=== PATIENT | male | born 1945 | race Two or more races ===

== ENCOUNTER 2023-03-01 13:36 | Emergency (ER) | payer OTHER ==
[~2023-03-01] VITALS: Ht 172.7 cm; Wt 78.9 kg
[2023-03-01 16:54] LABS: Urine Bacteria MOD /hpf (None Seen); Urine Blood 3+ /uL (Negative); Urine Clarity HAZY (Clear); Urine Color Yellow (Yellow); Urine Hyaline Cast FEW /lpf (0 - 2); Urine Mucus FEW (None Seen); Urine Protein, UAD 1+ (Negative); Urine Specific Gravity 1.019 (1.001-1.035); Urine Urobilinogen Normal (Negative); Urine WBC 80 /hpf (0 - 3); Urine WBC Clumps PRESENT /hpf (None Seen)
[2023-03-01] MEDS ORDERED: LEVO750T8 PO (17:08)
[2023-03-01 17:17] VITALS: BP 142/87; PULSE 77; RESP 16; TEMP 97.4; O2SAT 97
== END 2023-03-01 17:19 | disposition home or self-care (01) ==
LOC: ER 13:36
DX: N40.1 Benign prostatic hyperplasia with lower urinary tract symptoms (principal); N13.8 Other obstructive and reflux uropathy; N39.0 Urinary tract infection, site not specified
CPT/HCPCS: 51702; 81001

== ENCOUNTER 2023-03-04 23:49 | Emergency (ER) | payer OTHER ==
[~2023-03-04] VITALS: Ht 172.7 cm; Wt 78.5 kg
[~2023-03-04 23:49] MED LIST: LEVO750T8 PO
[2023-03-05 06:37] VITALS: BP 138/72; PULSE 79; RESP 18; TEMP 98; O2SAT 97
== END 2023-03-05 07:07 | disposition home or self-care (01) ==
LOC: ER 23:49
DX: T83.028A Displacement of other urinary catheter, initial encounter (principal); R33.9 Retention of urine, unspecified; I50.9 Heart failure, unspecified; Z87.438 Personal history of other diseases of male genital organs; Z87.440 Personal history of urinary (tract) infections
CPT/HCPCS: 51702

== ENCOUNTER 2023-03-06 07:16 | Emergency (ER) | payer OTHER ==
[~2023-03-06] VITALS: Ht 172.7 cm; Wt 76.9 kg
[2023-03-06 09:17] VITALS: BP 125/72; PULSE 86; RESP 18; TEMP 99.2; O2SAT 95
== END 2023-03-06 13:09 | disposition home or self-care (01) ==
LOC: ER 07:16
DX: N40.1 Benign prostatic hyperplasia with lower urinary tract symptoms (principal); T83.018D Breakdown (mechanical) of other urinary catheter, subsequent encounter; N13.8 Other obstructive and reflux uropathy; R33.9 Retention of urine, unspecified
CPT/HCPCS: 51702

== ENCOUNTER 2023-03-07 07:46 | Emergency (ER) | payer OTHER ==
[~2023-03-07] VITALS: Ht 172.7 cm; Wt 77.7 kg
[2023-03-07 08:51] VITALS: BP 136/72; PULSE 77; RESP 18; TEMP 97.8; O2SAT 94
[2023-03-08] MEDS ORDERED: ASPI81CH59 PO (01:20)
[2023-03-08] MEDS ORDERED: TAMS0.4C36 PO (01:20)
[2023-03-08] MEDS ORDERED: MELO-335 PO (01:20)
== END 2023-03-07 10:13 | disposition home or self-care (01) ==
LOC: ER 07:46
DX: T83.038A Leakage of other urinary catheter, initial encounter (principal); Z46.6 Encounter for fitting and adjustment of urinary device
CPT/HCPCS: 51702

== ENCOUNTER 2023-03-07 15:02 | Inpatient (IN) | payer OTHER ==
[~2023-03-07] VITALS: Ht 172.7 cm; Wt 74.6 kg
[2023-03-07] MEDS ORDERED: HYDROcodone-ACET 10/325MG TAB PO ONE (15:45)
[2023-03-07 17:09] LABS: Basophils # (auto) 0.1 10 ^3/uL (0-0.2); Basophils % (auto) 0.7 % (0.0-2.0); Eosinophils # (auto) 1.1 10 ^3/uL (0-0.8); Eosinophils % (auto) 10.9 % (0.0-7.0); Hemoglobin 14.3 g/dL (13.5-17.5); Lymphocytes # (auto) 1.8 10 ^3/uL (0.4-5.4); Lymphocytes % (auto) 18.4 % (10.0-50.0); Mean Corpuscular Hemoglobin 31.2 pg (28.0-32.0); Mean Corpuscular Hgb Conc. 34.8 g/dL (32.0-36.0); Mean Corpuscular Volume 89.7 fL (80.0-100.0); Monocytes # (auto) 0.8 10 ^3/uL (0-1.3); Monocytes % (auto) 8.6 % (0.0-12.0); Neutrophils % (auto) 61.4 % (37.0-80.0); Nucleated Red Blood Cells % 0.1 %; Red Blood Cells 4.57 10^6/uL (4.5-5.90); Red Cell Distribution Width 13.8 % (11.8-14.3); White Blood Cell 9.7 10^3/uL (4.4-10.8)
[2023-03-07 17:21] LABS: Alanine Aminotransferase 20 U/L (7-40); Albumin 4.5 g/dL (3.2-4.8); Alkaline Phosphatase 87 U/L (46-116); Anion Gap 10 (5-15); Aspartate Aminotransferase 21 U/L (13-40); BUN/Creatinine Ratio 16.5 (10.0-20.0); Bilirubin, Total 0.6 mg/dL (0.2-1.0); Blood Urea Nitrogen 17 mg/dL (9-23); Calcium 9.5 mg/dL (8.7-10.4); Carbon Dioxide 23 mmol/L (20-30); Chloride 105 mmol/L (98-107); Glucose 98 mg/dL (74-106); Sodium 138 mmol/L (136-145); Total Protein 7.9 g/dL (5.7-8.2)
[2023-03-07 17:57] VITALS: PULSE 90; RESP 20; O2SAT 96
[2023-03-07 18:17] LABS: Urine Bacteria NONE SEEN /hpf (None Seen); Urine Blood 3+ /uL (Negative); Urine Clarity HAZY (Clear); Urine Color Yellow (Yellow); Urine Mucus FEW (None Seen); Urine Protein, UAD 1+ (Negative); Urine Specific Gravity 1.007 (1.001-1.035); Urine Urobilinogen Normal (Negative); Urine WBC 18 /hpf (0 - 3); Urine pH 5.5 (5.0-8.0)
[2023-03-07 19:05] VITALS: PULSE 17; RESP 17; O2SAT 95
[2023-03-07] MEDS ORDERED: ACETAMINOPHEN 325 MG TAB PO PRN (19:15)
[2023-03-07] MEDS ORDERED: HYDROcodone-ACET 5/325MG TAB PO PRN (19:15)
[2023-03-07] MEDS ORDERED: SODIUM CHLORIDE 0.9% 1,000 ML IV SCH (19:15)
[2023-03-07] MEDS ORDERED: cefTRIAXone 1GM/50ML D5W 50 ML IV ONE (19:15)
[2023-03-08] VITALS (7 sets, daily range): BP systolic 87–150; BP diastolic 50–89; PULSE 73–92; RESP 16–19; TEMP 91–98.2; O2SAT 94–97
[2023-03-08] MEDS ORDERED: ASPI81CH59 PO (01:20)
[2023-03-08] MEDS ORDERED: TAMS0.4C36 PO (01:20)
[2023-03-08] MEDS ORDERED: MELO-335 PO (01:20)
[2023-03-08 05:13] LABS: Basophils # (auto) 0.1 10 ^3/uL (0-0.2); Basophils % (auto) 0.8 % (0.0-2.0); Eosinophils # (auto) 1.4 10 ^3/uL (0-0.8); Eosinophils % (auto) 14.3 % (0.0-7.0); Hematocrit 38.2 % (41.0-53.0); Lymphocytes # (auto) 1.9 10 ^3/uL (0.4-5.4); Lymphocytes % (auto) 18.5 % (10.0-50.0); Mean Corpuscular Hemoglobin 30.2 pg (28.0-32.0); Mean Corpuscular Hgb Conc. 33.9 g/dL (32.0-36.0); Mean Corpuscular Volume 89.2 fL (80.0-100.0); Monocytes # (auto) 0.9 10 ^3/uL (0-1.3); Monocytes % (auto) 9.3 % (0.0-12.0); Neutrophils # (auto) 5.7 10 ^3/uL (1.6-8.6); Neutrophils % (auto) 57.1 % (37.0-80.0); Nucleated Red Blood Cells % 0.1 %; Red Blood Cells 4.28 10^6/uL (4.5-5.90); Red Cell Distribution Width 14.1 % (11.8-14.3)
[2023-03-08 05:32] LABS: Alanine Aminotransferase 19 U/L (7-40); Albumin 3.8 g/dL (3.2-4.8); Alkaline Phosphatase 78 U/L (46-116); Anion Gap 9 (5-15); Aspartate Aminotransferase 19 U/L (13-40); Bilirubin, Total 0.5 mg/dL (0.2-1.0); Blood Urea Nitrogen 23 mg/dL (9-23); Carbon Dioxide 23 mmol/L (20-30); Chloride 107 mmol/L (98-107); Glucose 96 mg/dL (74-106); Potassium 3.8 mmol/L (3.5-5.1); Sodium 139 mmol/L (136-145); Total Protein 6.6 g/dL (5.7-8.2)
[2023-03-08] MEDS: cefTRIAXone 1GM/50ML D5W 50 ML IV SCH (09:43)
[2023-03-08] MEDS: SODIUM CHLORIDE 0.9% 1,000 ML IV SCH (14:25)
[2023-03-08] MEDS: TAMSULOSIN HYDROCHLORIDE 0.4 MG CAP PO SCH (17:52)
[2023-03-09] VITALS (8 sets, daily range): BP systolic 102–149; BP diastolic 67–94; PULSE 87–138; RESP 16–19; TEMP 36.9; O2SAT 93–95
[2023-03-09] MEDS: cefTRIAXone 1GM/50ML D5W 50 ML IV SCH (08:40)
[2023-03-09] MEDS: FINASTERIDE 5 MG TAB PO SCH (08:40)
[2023-03-09] MEDS: SODIUM CHLORIDE 0.9% 1,000 ML IV SCH ×3 (08:42→20:49)
[2023-03-09 09:20] LABS: PSA Free 3.3 ng/mL; Prostate Specific Antigen 26.6 ng/mL (0.0-4.0)
[2023-03-09] MEDS ORDERED: CEPH500C PO (16:28)
[2023-03-09] MEDS: TAMSULOSIN HYDROCHLORIDE 0.4 MG CAP PO SCH (18:37)
[2023-03-09 19:21] LABS: Basophils # (auto) 0 10 ^3/uL (0-0.2); Basophils % (auto) 0.3 % (0.0-2.0); Eosinophils # (auto) 0.4 10 ^3/uL (0-0.8); Eosinophils % (auto) 1.8 % (0.0-7.0); Hematocrit 40.1 % (41.0-53.0); Hemoglobin 13.5 g/dL (13.5-17.5); Lymphocytes % (auto) 5.2 % (10.0-50.0); Mean Corpuscular Hemoglobin 30.5 pg (28.0-32.0); Mean Corpuscular Hgb Conc. 33.8 g/dL (32.0-36.0); Mean Corpuscular Volume 90.3 fL (80.0-100.0); Monocytes # (auto) 1.5 10 ^3/uL (0-1.3); Neutrophils # (auto) 16.2 10 ^3/uL (1.6-8.6); Neutrophils % (auto) 84.7 % (37.0-80.0); Red Blood Cells 4.44 10^6/uL (4.5-5.90); Red Cell Distribution Width 14.2 % (11.8-14.3); White Blood Cell 19.1 10^3/uL (4.4-10.8)
[2023-03-09 19:40] LABS: Alanine Aminotransferase 18 U/L (7-40); Albumin 4.1 g/dL (3.2-4.8); Alkaline Phosphatase 76 U/L (46-116); Anion Gap 8 (5-15); Aspartate Aminotransferase 20 U/L (13-40); BUN/Creatinine Ratio 18.7 (10.0-20.0); Bilirubin, Total 0.7 mg/dL (0.2-1.0); Blood Urea Nitrogen 23 mg/dL (9-23); Calcium 9.2 mg/dL (8.7-10.4); Carbon Dioxide 25 mmol/L (20-30); Chloride 105 mmol/L (98-107); Glucose 127 mg/dL (74-106); Potassium 4.1 mmol/L (3.5-5.1); Sodium 138 mmol/L (136-145); Total Protein 7.2 g/dL (5.7-8.2)
[2023-03-09] MEDS: METOPROLOL TARTRATE 1MG/1ML-5ML VIAL IV SCH ×3 (21:28→22:16)
[2023-03-10] VITALS (7 sets, daily range): BP systolic 120–152; BP diastolic 76–80; PULSE 77–102; RESP 17–19; TEMP 97.9–99.1; O2SAT 93–95
[2023-03-10] MEDS: SODIUM CHLORIDE 0.9% 1,000 ML IV SCH ×2 (06:00→16:06)
[2023-03-10 09:10] LABS: Basophils # (auto) 0.1 10 ^3/uL (0-0.2); Basophils % (auto) 0.4 % (0.0-2.0); Eosinophils # (auto) 0.8 10 ^3/uL (0-0.8); Eosinophils % (auto) 6.3 % (0.0-7.0); Hematocrit 38.3 % (41.0-53.0); Lymphocytes # (auto) 1.4 10 ^3/uL (0.4-5.4); Lymphocytes % (auto) 10.7 % (10.0-50.0); Mean Corpuscular Hemoglobin 30.8 pg (28.0-32.0); Mean Corpuscular Hgb Conc. 34.1 g/dL (32.0-36.0); Mean Corpuscular Volume 90.4 fL (80.0-100.0); Monocytes # (auto) 1.4 10 ^3/uL (0-1.3); Monocytes % (auto) 11.1 % (0.0-12.0); Neutrophils # (auto) 9.3 10 ^3/uL (1.6-8.6); Neutrophils % (auto) 71.5 % (37.0-80.0); Red Blood Cells 4.24 10^6/uL (4.5-5.90); Red Cell Distribution Width 13.7 % (11.8-14.3)
[2023-03-10] MEDS: FINASTERIDE 5 MG TAB PO SCH (09:22)
[2023-03-10] MEDS: cefTRIAXone 1GM/50ML D5W 50 ML IV SCH (09:29)
[2023-03-10 09:33] LABS: Alanine Aminotransferase 16 U/L (7-40); Albumin 3.9 g/dL (3.2-4.8); Alkaline Phosphatase 65 U/L (46-116); Anion Gap 9 (5-15); Aspartate Aminotransferase 19 U/L (13-40); BUN/Creatinine Ratio 16.8 (10.0-20.0); Bilirubin, Total 1.2 mg/dL (0.2-1.0); Blood Urea Nitrogen 18 mg/dL (9-23); Calcium 9.6 mg/dL (8.5-10.1); Carbon Dioxide 24 mmol/L (20-30); Chloride 107 mmol/L (98-107); Glucose 110 mg/dL (74-106); Potassium 3.5 mmol/L (3.5-5.1); Sodium 140 mmol/L (136-145); Total Protein 7.1 g/dL (5.7-8.2)
[2023-03-10 10:58] LABS: Triglycerides 59 mg/dL (< 150)
[2023-03-10 10:59] LABS: LDL Cholesterol 72 mg/dL (< 100)
[2023-03-10 11:00] LABS: Cholesterol 132 mg/dL (< 200); HDL Cholesterol 45 mg/dL (40-59)
[2023-03-10] MEDS: SACUBITRIL-VALSARTAN 24mg/26mg TAB PO SCH ×2 (12:40→21:50)
[2023-03-10] MEDS: EMPAGLIFLOZIN 10 MG TAB PO SCH (12:40)
[2023-03-10] MEDS: METOPROLOL SUCCINATE XL 50 MG TAB PO SCH (12:40)
[2023-03-10] MEDS: TAMSULOSIN HYDROCHLORIDE 0.4 MG CAP PO SCH (17:48)
[2023-03-10] MEDS: ATORVASTATIN 20 MG TAB PO SCH (21:50)
[2023-03-11] VITALS (7 sets, daily range): BP systolic 105–135; BP diastolic 66–75; PULSE 68–96; RESP 16–19; TEMP 97.7–98.9; O2SAT 93–96
[2023-03-11] MEDS: SODIUM CHLORIDE 0.9% 1,000 ML IV SCH ×2 (01:20→09:30)
[2023-03-11] MEDS ORDERED: ALLOPURINOL 300 MG TAB PO ONE (02:30)
[2023-03-11] MEDS ORDERED: INDOMETHACIN 25 MG CAP PO ONE ×2 (02:30→21:15)
[2023-03-11 06:55] LABS: Basophils # (auto) 0 10 ^3/uL (0-0.2); Basophils % (auto) 0.2 % (0.0-2.0); Eosinophils # (auto) 0.4 10 ^3/uL (0-0.8); Eosinophils % (auto) 2.6 % (0.0-7.0); Hemoglobin 13.8 g/dL (13.5-17.5); Lymphocytes # (auto) 1.4 10 ^3/uL (0.4-5.4); Lymphocytes % (auto) 8.7 % (10.0-50.0); Mean Corpuscular Hemoglobin 30.8 pg (28.0-32.0); Mean Corpuscular Hgb Conc. 34.6 g/dL (32.0-36.0); Mean Corpuscular Volume 88.8 fL (80.0-100.0); Monocytes # (auto) 1.7 10 ^3/uL (0-1.3); Monocytes % (auto) 10.6 % (0.0-12.0); Neutrophils # (auto) 12.4 10 ^3/uL (1.6-8.6); Neutrophils % (auto) 77.9 % (37.0-80.0); Red Cell Distribution Width 13.6 % (11.8-14.3); White Blood Cell 15.9 10^3/uL (4.4-10.8)
[2023-03-11 07:13] LABS: Alanine Aminotransferase 17 U/L (7-40); Alkaline Phosphatase 67 U/L (46-116); Anion Gap 11 (5-15); Aspartate Aminotransferase 21 U/L (13-40); Blood Urea Nitrogen 15 mg/dL (9-23); Calcium 9.1 mg/dL (8.5-10.1); Carbon Dioxide 22 mmol/L (20-30); Chloride 106 mmol/L (98-107); Glucose 107 mg/dL (74-106); Potassium 3.5 mmol/L (3.5-5.1); Sodium 139 mmol/L (136-145)
[2023-03-11 07:14] LABS: Total Protein 7.4 g/dL (5.7-8.2)
[2023-03-11] MEDS: EMPAGLIFLOZIN 10 MG TAB PO SCH (09:28)
[2023-03-11] MEDS: FINASTERIDE 5 MG TAB PO SCH (09:28)
[2023-03-11] MEDS: SACUBITRIL-VALSARTAN 24mg/26mg TAB PO SCH ×2 (09:28→21:14)
[2023-03-11] MEDS: cefTRIAXone 1GM/50ML D5W 50 ML IV SCH (09:28)
[2023-03-11] MEDS: METOPROLOL SUCCINATE XL 50 MG TAB PO SCH (09:29)
[2023-03-11] MEDS ORDERED: traMADol HCL 50 MG TAB PO PRN (18:45)
[2023-03-11] MEDS: TAMSULOSIN HYDROCHLORIDE 0.4 MG CAP PO SCH (19:21)
[2023-03-11] MEDS ORDERED: PATIENTS OWN MEDICATION PO SCH (20:00)
[2023-03-11] MEDS: MELOXICAM 15MG TABLET PO SCH (20:00)
[2023-03-11] MEDS: ATORVASTATIN 20 MG TAB PO SCH (21:14)
[2023-03-12] VITALS (9 sets, daily range): BP systolic 108–127; BP diastolic 67–85; PULSE 76–105; RESP 12–20; TEMP 97.5–98.5; O2SAT 93–96
[2023-03-12 06:42] LABS: INR 1.1 (0.9-1.15); Prothrombin Time 11.5 sec (9.3-11.8)
[2023-03-12] MEDS: cefTRIAXone 1GM/50ML D5W 50 ML IV SCH (09:00)
[2023-03-12] MEDS: ALLOPURINOL 100 MG TAB PO SCH (10:00)
[2023-03-12] MEDS: FINASTERIDE 5 MG TAB PO SCH (10:00)
[2023-03-12] MEDS: SACUBITRIL-VALSARTAN 24mg/26mg TAB PO SCH ×2 (10:00→19:43)
[2023-03-12] MEDS: EMPAGLIFLOZIN 10 MG TAB PO SCH (10:00)
[2023-03-12] MEDS: METOPROLOL SUCCINATE XL 50 MG TAB PO SCH (10:00)
[2023-03-12] MEDS: MELOXICAM 15MG TABLET PO SCH (10:00)
[2023-03-12] MEDS ORDERED: LIDOCAINE VISCOUS 2% 15ML UD PO ONE (10:15)
[2023-03-12] MEDS ORDERED: fentaNYL CITRATE 100 MCG/2 ML VL IV ONE (10:15)
[2023-03-12] MEDS ORDERED: MIDAZOLAM HCL 2MG/2ML 2ml VIAL (1mg/ml) IV ONE (10:15)
[2023-03-12] MEDS ORDERED: IOHEXOL 350 MG/ML 100ML IJ ONE (15:36)
[2023-03-12] MEDS ORDERED: FAMOTIDINE (10MG/ML) 2ML VL IV ONE (16:00)
[2023-03-12] MEDS ORDERED: ACETAMINOPHEN 325 MG TAB PO ONE (16:00)
[2023-03-12] MEDS ORDERED: methylPREDNISolone SOD SUCC 125 MG/2 ML VL IV ONE (16:00)
[2023-03-12] MEDS ORDERED: diphenhdrAMINE HCL 50 MG/1 ML VL IV ONE (16:00)
[2023-03-12] MEDS: ATORVASTATIN 20 MG TAB PO SCH (19:43)
[2023-03-12] MEDS: TAMSULOSIN HYDROCHLORIDE 0.4 MG CAP PO SCH (19:43)
[2023-03-13] VITALS (7 sets, daily range): BP systolic 79–128; BP diastolic 44–80; PULSE 77–102; RESP 16–18; TEMP 97.4–98.8; O2SAT 88–100
[2023-03-13 07:14] LABS: Alanine Aminotransferase 24 U/L (7-40); Alkaline Phosphatase 68 U/L (46-116); Anion Gap 10 (5-15); Aspartate Aminotransferase 29 U/L (13-40); BUN/Creatinine Ratio 17.3 (10.0-20.0); Blood Urea Nitrogen 17 mg/dL (9-23); Calcium 9.3 mg/dL (8.5-10.1); Carbon Dioxide 23 mmol/L (20-30); Chloride 105 mmol/L (98-107); Glucose 92 mg/dL (74-106); Potassium 3.6 mmol/L (3.5-5.1); Sodium 138 mmol/L (136-145)
[2023-03-13 07:15] LABS: Bilirubin, Total 0.9 mg/dL (0.2-1.0); Total Protein 7.3 g/dL (5.7-8.2)
[2023-03-13 07:56] LABS: Basophils # (auto) 0.1 10 ^3/uL (0-0.2); Basophils % (auto) 0.6 % (0.0-2.0); Eosinophils # (auto) 1.7 10 ^3/uL (0-0.8); Eosinophils % (auto) 14.8 % (0.0-7.0); Hematocrit 39.9 % (41.0-53.0); Hemoglobin 13.7 g/dL (13.5-17.5); Lymphocytes # (auto) 1.6 10 ^3/uL (0.4-5.4); Mean Corpuscular Hemoglobin 30.7 pg (28.0-32.0); Mean Corpuscular Hgb Conc. 34.3 g/dL (32.0-36.0); Mean Corpuscular Volume 89.4 fL (80.0-100.0); Monocytes # (auto) 1.1 10 ^3/uL (0-1.3); Monocytes % (auto) 9.7 % (0.0-12.0); Neutrophils % (auto) 60.9 % (37.0-80.0); Nucleated Red Blood Cells % 0.1 %; Red Blood Cells 4.46 10^6/uL (4.5-5.90); Red Cell Distribution Width 13.6 % (11.8-14.3); White Blood Cell 11.5 10^3/uL (4.4-10.8)
[2023-03-13] MEDS: cefTRIAXone 1GM/50ML D5W 50 ML IV SCH (09:04)
[2023-03-13] MEDS: SACUBITRIL-VALSARTAN 24mg/26mg TAB PO SCH (09:10)
[2023-03-13] MEDS: EMPAGLIFLOZIN 10 MG TAB PO SCH (09:11)
[2023-03-13] MEDS: FINASTERIDE 5 MG TAB PO SCH (09:12)
[2023-03-13] MEDS: METOPROLOL SUCCINATE XL 50 MG TAB PO SCH (09:13)
[2023-03-13] MEDS: ALLOPURINOL 100 MG TAB PO SCH (09:13)
[2023-03-13] MEDS: MELOXICAM 15MG TABLET PO SCH (09:13)
[2023-03-13] MEDS ORDERED: METO25TA5 PO (13:38)
[2023-03-13] MEDS ORDERED: FINA5TAB4 PO (13:38)
== END 2023-03-13 17:26 | disposition home or self-care (01) | DRG 699 ==
LOC: EDUNIT# 15:02 → ER 15:02 → EDBD 15:02 → OVERFLOW 19:10 → WEST WING 23:47 → TELE-WESTW 03-08 19:10
PROVIDERS: ADMIT Nurse Practitioner Family; ATTEND Nurse Practitioner Acute Care
PROC: B24BZZ4 Ultrasonography of Heart with Aorta, Transesophageal (ICD-10-PCS; principal; 2023-03-12)
DX: T83.038A Leakage of other urinary catheter, initial encounter (principal); I42.0 Dilated cardiomyopathy; I50.40 Unspecified combined systolic (congestive) and diastolic (congestive) heart failure; N13.8 Other obstructive and reflux uropathy; N13.6 Pyonephrosis; N40.1 Benign prostatic hyperplasia with lower urinary tract symptoms; Y84.6 Urinary catheterization as the cause of abnormal reaction of the patient, or of later complication, without mention of misadventure at the time of the procedure; I44.0 Atrioventricular block, first degree; I44.7 Left bundle-branch block, unspecified; R00.0 Tachycardia, unspecified; I08.0 Rheumatic disorders of both mitral and aortic valves; N21.0 Calculus in bladder; E66.9 Obesity, unspecified; M10.9 Gout, unspecified; Z79.82 Long term (current) use of aspirin; Z79.899 Other long term (current) drug therapy; Z87.440 Personal history of urinary (tract) infections; Y92.89 Other specified places as the place of occurrence of the external cause; Z68.26 Body mass index [BMI] 26.0-26.9, adult
CPT/HCPCS: 36415; 70450; 71045; 71275; 74176; 80053; 80061; 81001; 82962; 83036; 83880; 84154; 84443; 84484; 84550; 85025; 85379; 85610; 85730; 86850; 86900; 86901; 87040; 87086; 93005; 93306; 93312; 93886; 99152; 99291; G0378; J2250

== ENCOUNTER 2023-03-16 08:51 | Emergency (ER) | payer OTHER ==
[~2023-03-16] VITALS: Ht 172.7 cm; Wt 77.1 kg
[~2023-03-16 08:51] MED LIST changes: +CEPH500C PO; +FINA5TAB4 PO; -LEVO750T8 PO; +MELO-335 PO; +METO25TA5 PO; +TAMS0.4C36 PO
[2023-03-16 09:33] VITALS: BP 183/91; PULSE 87; RESP 18; TEMP 97.5; O2SAT 98
== END 2023-03-16 10:24 | disposition home or self-care (01) ==
LOC: ER 08:51
DX: T83.098A Other mechanical complication of other urinary catheter, initial encounter (principal); R33.9 Retention of urine, unspecified; I50.9 Heart failure, unspecified; M10.9 Gout, unspecified; Z79.2 Long term (current) use of antibiotics; Z79.82 Long term (current) use of aspirin; Z79.899 Other long term (current) drug therapy
CPT/HCPCS: 51702

== ENCOUNTER 2024-06-11 18:12 | Inpatient (IN) | payer OTHER ==
[~2024-06-11] VITALS: Ht 172.7 cm; Wt 85.5 kg
[~2024-06-11 18:12] MED LIST changes: -MELO-335 PO; +MELO15TA29 PO; -TAMS0.4C36 PO; +TAMS0.4C39 PO
--- NOTE | 2024-06-11 18:20 | ED.PDOC ---
GI ASSESSMENT HPI Comments 78 y/o M, with PMHx of CHF, GOUT, and arthritis presents to the ED for CC of abdominal pain and blood pressure concerns. Patient states, that he has been experiencing diffuse abdominal pain with associated symptoms of nausea, vomiting, and diarrhea x1day. additionally, patient states his blood pressure was elevated at today's reading. Patient relays, additional symptoms of change in gait and motor functions as a result or flare-up. Patient denies fever, chills, body-aches, or change in diet. No other symptoms or modifying factors present at this time . Patient was tachycardic, hypertensive and febrile at arrival. Time Seen by MD: 18:19 Primary Care Provider: ISAIAS Reviewed Notes: Nurses Notes, Medications, Allergies Allergies: Coded Allergies: NO KNOWN ALLERGIES (Unverified , 03/01/23) Home Meds Active Scripts Metoprolol Tartrate (Metoprolol Tartrate) 25 Mg Tab, 1 TAB PO BID for 30 Days, #60 TAB 5 Refills Prov:KNEDELL SEGURA HOUSE STEWARD/STEWARDESS 03/13/23 Finasteride (Finasteride) 5 Mg Tab, 1 TAB PO DAILY for 30 Days, #30 TAB 11 Refills Prov:KENDELL SEGURA HOUSE STEWARD/STEWARDESS 03/13/23 Cephalexin Monohydrate (Cephalexin) 500 Mg Cap, 1 CAP PO TID for 7 Days, #21 CAP Prov:IDA KANG MD 03/09/23 Reported Medications Meloxicam (Meloxicam) 15 Mg Tab, 15 MG PO, TAB 03/08/23 Tamsulosin Hcl (Tamsulosin Hcl) 0.4 Mg Cap, 1 CAP PO DAILY 03/08/23 Information Source: Patient Mode of Arrival: Ambulatory Timing: Days Duration: Since onset Prehospital treatment: None Quality: None Vomitus: Watery Stool: Watery Severity: Moderate Recent: None Recent Hx of: None Pain Location: Diffuse Modifying Factors: Nothing Associated sign and symptoms: Nausea, Vomiting, Diarrhea Past Medical History PAST MEDICAL HISTORY: Arthritis, CHF, Gout, HTN, UTI'S Surgical History: Denies all surgeries Family History Family History: Reviewed,noncontributory to illness Social History Smoker: Non-Smoker Alcohol: Denies ETOH Use Drugs: Denies Drug Use Lives In: Home Constitutional: reports: fatigue, weakness, others (Unsteady gait); denies: chills, diaphoresis, fever, malaise, sweats EENTM: denies: blurred vision, double vision, ear bleeding, ear discharge, ear drainage, ear pain, ear ringing, eye pain, eye redness, hearing loss, mouth pain, mouth swelling, nasal discharge, nose bleeding, nose congestion, nose pain, photophobia, tearing, throat pain, throat swelling, voice changes, others Respiratory: denies: cough, hemoptysis, orthopnea, SOB at rest, shortness of breath, SOB with excertion, stridor, wheezing, others Cardiovascular: denies: chest pain, dizzy spells, diaphoresis, Dyspnea on exertion, edema, irregular heart beat, left arm pain, lightheadedness, palpitations, PND, syncope, others Gastrointestinal: reports: abdominal pain, diarrhea, nausea, vomiting; denies: abdomen distended, blood streaked bowels, constipated, dysphagia, difficulty swallowing, hematemesis, melena, poor appetite, poor fluid intake, rectal bleeding, rectal pain, others Genitourinary: denies: burning, dysuria, flank pain, frequency, hematuria, incontinence, penile discharge, penile sore, pain, testicle pain, testicle swelling, urgency, others Neurological: denies: dizziness, fainting, headache, left sided numbness, left sided weakness, numbness, paresthesia, pre-existing deficit, right sided numbness, right sided weakness, seizure, speech problems, tingling, tremors, weakness, others Musculoskeletal: reports: others ( unsteady gait); denies: back pain, gout, joint pain, joint swelling, muscle pain, muscle stiffness, neck pain Integumetry: denies: bruises, change in color, change in hair/nails, dryness, laceration, lesions, lumps, rash, wounds, others Allergic/Immunocompromised: denies: Difficulty Healing, Frequent Infections, Hives, Itching, others Hematologic/Lymphatic: denies: anemia, blood clots, easy bleeding, easy bruising, swollen glands, others Endocrine: denies: excessive hunger, excessive sweating, excessive thirst, excessive urination, flushing, intolerance to cold, intolerance to heat, unexplained weight gain, unexplained weight loss, others Psychiatric: denies: anxiety, bipolar disorder, depression, hopeless, panic disorder, schizophrenia, sleepless, suicidal, others All Other Systems: Reviewed and Negative Physical Exam General Appearance: Moderate Distress ( due to abdominal pain and blood pressure issues), Normal HEENT: Normal ENT Inspection, Pharynx Normal, TMs Normal Neck: Full Range of Motion, Non-Tender, Normal, Normal Inspection Respiratory: Chest Non-Tender, Lungs Clear, No Accessory Muscle Use, No Respiratory Distress, Normal Breath Sounds Cardiovascular: No Edema, No JVD, No Murmur, No Gallop, Normal Peripheral Pulses, Regular Rate/Rhythm Breast Exam: Deferred Gastrointestinal: No Organomegaly, Non Tender, No Pulsatile Mass, Normal Bowel Sounds, Soft Genitalia: Deferred Pelvic: Deferred Rectal: Deferred Extremities: Other ( patient displayed an unsteady gait as he anterior the triage facility for assistance.) Neurologic: Alert, No Motor Deficits, Normal Affect, Normal Mood, No Sensory Deficits Cerebellar Function: Normal Reflexes: Normal Skin: Dry, Normal Color, Warm Lymphatic: No Adenopathy Was a procedure done? Was a procedure done?: No GI differential Dx Differential Diagnosis: Gastritis/PUD, Gastroenteritis, Pancreatitis, Electrolyte Imbalance, Food Poisoning, Bacterial, Viral X-Ray, Labs, Meds, VS Vital Signs Date Time Temp Pulse Resp B/P (MAP) Pulse Ox O2 Delivery O2 Flow Rate FiO2 06/12/24 01:36 72 12 98/35 (56) 96 06/11/24 23:20 77 15 91 Nasal Cannula* 3 32 06/11/24 23:08 99.8 80 21 104/53 (70) 95 99.8 06/11/24 23:07 75 06/11/24 22:58 76 17 74/50 (58) 95 06/11/24 21:13 06/11/24 21:09 99.5 120 16 106/55 (72) 94 99.5 06/11/24 21:08 99.5 06/11/24 20:13 134/88 06/11/24 19:55 127 18 139/88 (105) 94 06/11/24 19:54 139/88 06/11/24 19:16 101.5 127 17 171/93 (119) 94 101.5 06/11/24 19:16 127 17 94 Room Air 06/11/24 19:09 171/93 06/11/24 19:06 101.5 06/11/24 18:54 102.1 130 19 162/102 (122) 95 102.1 Lab Test 06/11/24 22:56 06/11/24 19:28 06/11/24 18:20 Range/Units POC Glucose 183 H 70-106 mg/dl Urine Color Light-yellow Yellow Urine Clarity Clear Clear Urine pH 5.5 5.0-9.0 Urine Specific [place] 1.010 1.001-1.035 Urine Protein 1+ H Negative Urine Ketones Negative Negative Urine Blood 1+ H Negative /uL Urine Nitrite 1+ H Negative Urine Bilirubin Negative Negative Urine Urobilinogen Normal Negative mg/dL Urine Leukocyte Esterase Negative Negative /uL Urine RBC 2 0 - 3 /hpf Urine Microscopic WBC 3 0-3 /HPF Urine Squamous Epithelial Cells Few <5 /hpf Urine Bacteria None seen None Seen /hpf Urine Mucus Few None Seen Urine Glucose Normal Normal mg/dL Urine Opiates Screen Neg NEGATIVE Urine Fentanyl Screen Neg NEGATIVE Urine Barbiturates Screen Neg NEGATIVE Urine Phencyclidine Screen Neg NEGATIVE Urine Amphetamines Screen Neg NEGATIVE Urine Benzodiazepines Screen Neg NEGATIVE Urine Cocaine Screen Neg NEGATIVE Urine Cannabinoids Screen Neg NEGATIVE Influenza Type A Antigen Negative Negative Influenza Type B Antigen Negative Negative SARS-CoV-2 Antigen (Rapid) Negative NEGATIVE White Blood Count 14.0 H 4.4-10.8 10^3/uL Red Blood Count 5.96 H 4.5-5.90 10^6/uL Hemoglobin 18.7 H 13.5-17.5 g/dL Hematocrit 53.9 H 41.0-53.0 % Mean Corpuscular Volume 90.6 80.0-100.0 fL Mean Corpuscular Hemoglobin 31.4 28.0-32.0 pg Mean Corpuscular Hemoglobin Concent 34.7 32.0-36.0 g/dL Red Cell Distribution Width 14.8 H 11.8-14.3 % Platelet Count 207 140-450 10^3/uL Mean Platelet Volume 8.0 6.9-10.8 fL Neutrophils (%) (Auto) 84.9 H 37.0-80.0 % Lymphocytes (%) (Auto) 4.8 L 10.0-50.0 % Monocytes (%) (Auto) 8.8 0.0-12.0 % Eosinophils (%) (Auto) 1.2 0.0-7.0 % Basophils (%) (Auto) 0.3 0.0-2.0 % Neutrophils # (Auto) 11.9 H 1.6-8.6 10 ^3/uL Lymphocytes # (Auto) 0.7 0.4-5.4 10 ^3/uL Monocytes # (Auto) 1.2 0-1.3 10 ^3/uL Eosinophils # (Auto) 0.2 0-0.8 10 ^3/uL Basophils # (Auto) 0 0-0.2 10 ^3/uL Nucleated Red Blood Cells 0.7 % Sodium Level 136 136-145 mmol/L Potassium Level 4.2 3.5-5.1 mmol/L Chloride Level 103 98-107 mmol/L Carbon Dioxide Level 23 20-31 mmol/L Anion Gap 10 5-15 Blood Urea Nitrogen 15 9-23 mg/dL Creatinine 1.36 H 0.700-1.30 mg/dL Glomerular Filtration Rate Calc 54 >90 mL/min BUN/Creatinine Ratio 11.0 10.0-20.0 Serum Glucose 125 H 74-106 mg/dL Lactic Acid Level 1.4 0.4-2.0 mmol/L Calcium Level 9.9 8.7-10.4 mg/dL Total Bilirubin 0.7 0.2-1.0 mg/dL Aspartate Amino Transferase (AST) 31 13-40 U/L Alanine Aminotransferase (ALT) 27 7-40 U/L Alkaline Phosphatase 103 46-116 U/L B-Type Natriuretic Peptide 181.72 0-100 pg/mL Total Protein 8.9 H 5.7-8.2 g/dL Albumin 5.3 H 3.2-4.8 g/dL Lipase 39 12-53 U/L Plasma/Serum Blood Alcohol < 3.0 <10 mg/dL Current Medications Medications (Trade) Dose Ordered Sig/Komal Route Start Time Stop Time Status Last Admin Dicyclomine HCl (Bentyl Injection) 20 mg ONCE ONCE IM 06/11/24 18:30 06/11/24 18:31 DC 06/11/24 19:09 Ondansetron HCl (Zofran Po) 4 mg ONCE ONCE PO 06/11/24 18:30 06/11/24 18:31 DC 06/11/24 19:09 Acetaminophen (Tylenol Tablet Or Capsule) 1,000 mg ONCE ONCE PO 06/11/24 19:00 06/11/24 19:01 DC 06/11/24 19:06 Clonidine HCl (Catapres Tablet) 0.2 mg ONCE ONCE PO 06/11/24 19:15 06/11/24 19:16 DC 06/11/24 19:09 Sodium Chloride 1,000 ml @ 1,000 mls/hr Q1H ONCE IV 06/11/24 20:00 06/11/24 20:59 DC 06/11/24 20:09 Furosemide (Lasix Injection) 40 mg ONCE ONCE IV 06/11/24 20:00 06/11/24 20:03 DC 06/11/24 20:13 Piperacillin Sod/ Tazobactam Sod 100 ml @ 100 mls/hr ONCE ONCE IV 06/11/24 20:00 06/11/24 20:59 DC 06/11/24 20:16 Vancomycin HCl 350 ml @ 200 mls/hr ONCE ONCE IV 06/11/24 20:30 06/11/24 22:14 DC 06/11/24 21:26 Sodium Chloride 1,000 ml @ 1,000 mls/hr Q1H ONCE IV 06/11/24 21:15 06/11/24 22:14 DC 06/11/24 21:18 Sodium Chloride 1,000 ml @ 1,000 mls/hr Q1H ONCE IV 06/11/24 23:15 06/12/24 00:14 DC 06/11/24 23:08 Albumin Human 100 ml @ 100 mls/hr ONCE ONCE IV 06/12/24 01:00 06/12/24 01:59 DC 06/12/24 01:03 X-Ray, Labs, Meds, VS Comment At time of arrival, patient is blood pressure heart rate and respiration rate was elevated inspire a SIRS concern. First laboratories revealed an elevated white blood cell count therefore, sepsis protocol was initiated. All studies performed in the ED were reviewed by me personally. Serum laboratories revealed a hyperglycemic state as well as a leukocyte doses state. Urinalysis confirmed a UTI and imaging confirmed a prostatomegaly, 3.5 cm calculus in the dependent left urinary bladder, nonobstructing left renal stone, mild colonic diverticulosis. Concerning was the patient arrived with elevated blood pressure readings and therefore, patient was provided with a 0.2 clonidine. Subsequent to taking the clonidine patient's blood pressure crashed relative to normal pressure readings. Pressure was in the high 70s over the high 30s. Patient received multiple boluses of fluid as well as albumin while awaiting admission.. Spoke with the provider Katiuska Isidro. Waiting on imaging studies to convey to her as she is willing to accept the patient as an admission Time of 1ST Reevaluation: 18:49 Reevaluation 1ST: Unchanged Patient Education/Counseling: Diagnosis, Treatment Family Education/Counseling: No Family Present Departure 1 Departure Time of Disposition: 02:36 Impression: Primary Impression: Hypotension Additional Impressions: Leukocytosis Hyperglycemia UTI (urinary tract infection) Sepsis Disposition: ADMITTED INPATIENT Condition: Fair Discharged With: Self Critical Care Note Critical Care Time?: No Stability Stability form required: No Heart Score Heart Score: Heart Score Response (Comments) Value History N/A 0 EKG N/A 0 Age N/A 0 Risk Factors N/A 0 Troponin N/A 0 Total 0 I personally scribed for BONNIE GRULLON PAC ([email or web address]) on 06/11/24 at 18:20. Electronically submitted by Bailee Whaley ([email or web address]). I personally scribed for BONNIE GRULLON PAC ([email or web address]) on 06/11/24 at 18:26. Electronically submitted by Bailee Whaley ([email or web address]). BONNIE GRULLON PAC Jun 11, 2024 18:20
[2024-06-11 18:46] LABS: Basophils # (auto) 0 10 ^3/uL (0-0.2); Basophils % (auto) 0.3 % (0.0-2.0); Eosinophils # (auto) 0.2 10 ^3/uL (0-0.8); Lymphocytes # (auto) 0.7 10 ^3/uL (0.4-5.4); Monocytes # (auto) 1.2 10 ^3/uL (0-1.3)
[2024-06-11 18:49] LABS: Eosinophils % (auto) 1.2 % (0.0-7.0); Hematocrit 53.9 % (41.0-53.0); Hemoglobin 18.7 g/dL (13.5-17.5); Lymphocytes % (auto) 4.8 % (10.0-50.0); Mean Corpuscular Hemoglobin 31.4 pg (28.0-32.0); Mean Corpuscular Hgb Conc. 34.7 g/dL (32.0-36.0); Mean Corpuscular Volume 90.6 fL (80.0-100.0); Monocytes % (auto) 8.8 % (0.0-12.0); Neutrophils # (auto) 11.9 10 ^3/uL (1.6-8.6); Neutrophils % (auto) 84.9 % (37.0-80.0); Nucleated Red Blood Cells % 0.7 %; Platelet Count (auto) 207 10^3/uL (140-450); Red Blood Cells 5.96 10^6/uL (4.5-5.90); Red Cell Distribution Width 14.8 % (11.8-14.3)
[2024-06-11] MEDS: ACETAMINOPHEN 325 MG TAB PO ONE (19:03)
[2024-06-11 19:05] LABS: Alanine Aminotransferase 27 U/L (7-40); Alkaline Phosphatase 103 U/L (46-116); Anion Gap 10 (5-15); Aspartate Aminotransferase 31 U/L (13-40); Bilirubin, Total 0.7 mg/dL (0.2-1.0); Blood Urea Nitrogen 15 mg/dL (9-23); Calcium 9.9 mg/dL (8.7-10.4); Carbon Dioxide 23 mmol/L (20-31); Chloride 103 mmol/L (98-107); Potassium 4.2 mmol/L (3.5-5.1); Sodium 136 mmol/L (136-145)
[2024-06-11] MEDS: ACETAMINOPHEN 500 MG TAB or CAP PO ONE (19:06)
[2024-06-11] MEDS: cloNIDine HCL 0.1 MG TAB PO ONE (19:09)
[2024-06-11] MEDS: DICYCLOMINE HCL (10MG/ML) 2 ML AMPULE IM ONE (19:09)
[2024-06-11] MEDS: ONDANSETRON ODT 4 MG TAB PO ONE (19:09)
[2024-06-11 19:13] LABS: Albumin 5.3 g/dL (3.2-4.8); Blood Alcohol < 3.0 mg/dL (<10); Glucose 125 mg/dL (74-106); Total Protein 8.9 g/dL (5.7-8.2)
[2024-06-11 19:30] LABS: Lipase 39 U/L (12-53)
[2024-06-11] MEDS ORDERED: VANCOMYCIN PER PHARMACY 0 MG IV SCH (20:00)
[2024-06-11] MEDS: SODIUM CHLORIDE 0.9% 1,000 ML IV ONE ×4 (20:03→23:08)
[2024-06-11] MEDS: FUROSEMIDE 40 MG/4 ML VIAL IV ONE (20:13)
[2024-06-11] MEDS: PIPERACILLIN-TAZOB 3.375GM 100 ML IV ONE (20:16)
[2024-06-11 21:06] LABS: Urine Bacteria None Seen /hpf (None Seen)
[2024-06-11] MEDS: VANCOMYCIN 1.75GM/350ML 350 ML IV ONE (21:26)
[2024-06-11 21:33] LABS: Amphetamine Screen, Urine Neg (NEGATIVE); Barbiturate Scree,Urine Neg (NEGATIVE); Benzodiazephine Screen, Urine Neg (NEGATIVE); COVID19 ANTIGEN SOFIA FIA NEGATIVE (NEGATIVE); Cannabinoid Screen, Urine Neg (NEGATIVE); Cocaine Screen, Urine Neg (NEGATIVE); Opiate Scree,Urine Neg (NEGATIVE); Phencyclidine Screen, Urine Neg (NEGATIVE); Rapid Influenza A Negative (Negative); Rapid Influenza B Negative (Negative)
[2024-06-11 21:37] LABS: Urine Blood 1+ /uL (Negative); Urine Clarity Clear (Clear); Urine Color Light-Yellow (Yellow); Urine Mucus FEW (None Seen); Urine Protein, UAD 1+ (Negative); Urine Squamous Epithelial Cell FEW /hpf (<5); Urine Urobilinogen Normal (Negative); Urine WBC 3 /HPF (0-3); Urine pH 5.5 (5.0-9.0)
[2024-06-11 23:20] VITALS: PULSE 77; RESP 15; O2SAT 91
[2024-06-12] MEDS: ALBUMIN 25% 100 ML IV ONE (01:03)
--- NOTE | 2024-06-12 02:08 | DVH ---
CLINICAL HISTORY: Shortness of breath/ ABD PAIN TECHNIQUE: CT of the chest, abdomen and pelvis was performed with IV contrast without IV contrast. Th is exam was performed according to our departmental dose optimization program. Up-to-date CT equipmen t and radiation dose reduction techniques are utilized as appropriate. CTDI: 21.64+ 0.14 DLP: 1604.07 COMPARISON: CT CT AB PEL WO CON-NO ORAL OR IV on DOS: 03/07/23 CTA chest from 03/12/2023 FINDINGS: CHEST FINDINGS: Lower Neck: Small hypodense right thyroid nodule on series 2, image 10. Axilla, Mediastinum and Tania: No mediastinal or axillary lymphadenopathy. Limited evaluation of the h elaine in the absence of intravenous contrast. Heart and Great Vessels: Normal-sized heart with trace pericardial fluid. Moderate aortic valve calci fications. The thoracic aorta is normal in caliber containing Mild calcified plaque. The central pul monary arteries are normal caliber. Airway, Lungs and Pleura: Trachea and central airways are patent. Linear areas of atelectasis or scar ring in the bilateral lungs. No pleural effusion, pneumothorax, or airspace consolidation. Chest Wall and Osseous Structures: Degenerative Changes of the bilateral shoulders. There is multile georges thoracic spondylosis. No destructive osseous lesion. Abdomen and Pelvis Findings: Liver and Biliary system: Normal-sized liver. No definite hepatic lesion. The gallbladder is normal c aliber. There is no biliary ductal dilatation. Spleen: Unremarkable. Adrenal Glands and Kidneys: Normal adrenal glands. Mild nonspecific perinephric stranding. There are bilateral renal hypodensities not optimally evaluated without contrast, measuring up to 6.1 cm in the right lower pole on series 2, image 150. There are small nonobstructing left renal calculi. There is no hydronephrosis in either kidney. There is a hemorrhagic cyst in the interpolar left kidney. Pancreas and Retroperitoneum: Unremarkable. Aorta and Major Vessels: Aortoiliac vessels are normal in caliber containing mild calcified atheroscl erotic plaque. Bowel, Mesentery and Peritoneal space: Normal caliber small and large bowel. There is mild colonic di verticulosis. Normal appendix. There is no free air or fluid collection. Pelvis: Marked prostatomegaly. There is a prominent 3.5 cm calculus layering in the dependent left ur inary bladder. Urinary bladder is mildly distended. No pelvic lymphadenopathy. Abdominal wall and Osseous Structures: Small fat containing bilateral inguinal and umbilical hernias. Multilevel lumbar spondylosis. No destructive osseous lesion. 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 IMPRESSION: 1. Marked prostatomegaly. 2. Prominent 3.5 cm calculus in the dependent left urinary bladder. 3. Nonobstructing left renal calculi. 4. Moderate aortic valve calcifications. 5. Mild colonic diverticulosis. 6. Bilateral renal hypodensities likely cysts although not optimally evaluated without contrast.
[2024-06-12] MEDS ORDERED: ONDANSETRON HCL 4 MG/2 ML VIAL IV PRN (03:00)
[2024-06-12] MEDS ORDERED: HYDROcodone-ACET 5/325MG TAB PO PRN (03:00)
[2024-06-12] MEDS ORDERED: ACETAMINOPHEN 325 MG TAB PO PRN (03:00)
[2024-06-12] MEDS ORDERED: MORPHINE SULFATE INJ 2 MG/ml SYRG IV PRN (03:00)
--- NOTE | 2024-06-12 03:06 | DVHHP2 ---
Admitting Diagnosis: Urinary bladder calculi, BRAYDEN, UTI, Hypotension History of Present Illness History Source: Patient Exam Limitations: No limitations HPI Mr. Norm Martinez is a 78 year old male with history of CHF, GOUT, and arthritis presents with a chief complaint of abdominal pain. Patient states, that he has been experiencing diffuse abdominal pain with associated symptoms diarrhea x1day. Patient denies any abdominal pain, diarrhea, nausea, vomiting, melena, hematochezia, chest pain, palpitations, dizziness. It was reported patient had an episode of dizziness in ED treatment area with SBP's 70's. Patient with recent blood pressure of 107/50. Patient admitted for further evaluation. Home Meds Active Scripts Metoprolol Tartrate (Metoprolol Tartrate) 25 Mg Tab, 1 TAB PO BID for 30 Days, #60 TAB 5 Refills Prov:NORM SEGURA BRICK KILN BURNER 03/13/23 Finasteride (Finasteride) 5 Mg Tab, 1 TAB PO DAILY for 30 Days, #30 TAB 11 Refills Prov:NORM SEGURA NP 03/13/23 Cephalexin Monohydrate (Cephalexin) 500 Mg Cap, 1 CAP PO TID for 7 Days, #21 CAP Prov:IDA KANG MD 03/09/23 Reported Medications Meloxicam (Meloxicam) 15 Mg Tab, 15 MG PO, TAB 03/08/23 Tamsulosin Hcl (Tamsulosin Hcl) 0.4 Mg Cap, 1 CAP PO DAILY 03/08/23 Past Medical History Cardiac: CHF Pulmonary: No pertinent Hx Central Nervous System: No pertinent Hx GI: No pertinent Hx Hemotology/Oncology: No pertinent Hx Hepatobiliary: No pertinent Hx Psychiatric: No pertinent Hx Musculoskeletal: No pertinent Hx Rheumotologic: No pertinent Hx Infectious Disease: No peritnent Hx ENT: No pertinent Hx Renal/: Benign prostatic enlarg. Endocrine: No pertinent Hx Dermatology: No pertinent Hx Others GOUT Patient Family History: FH: cancer G8 MOTHER G8 FATHER Smoker: No Hx (Negative) Alocohol: None Drugs: None Lives with: With family Domestic Violence: Neg Review of Systems Constitutional: No symptom reported Ears, Nose, & Throat: No symptom reported Eyes: No symptom reported Pulmonary/Respiratory: No symptom reported Cardiovascular: No symptom reported Gastrointestinal: Abdominal Pain, Diarrhea Genitourinary: No symptom reported Musculoskeletal: No symptom reported Skin: No symptom reported Psychiatric: No symptom reported Endocrine: No symptom reported Hemotologic/Lymphatic: No symptom reported H&P Exam Vital Signs Vital Signs Date Time Temp Pulse Resp B/P (MAP) Pulse Ox O2 Delivery O2 Flow Rate FiO2 06/12/24 01:36 72 12 98/35 (56) 96 06/11/24 23:20 Nasal Cannula* 3 32 06/11/24 23:08 99.8 99.8 General Appeara: Well developed, Well nourished, Normal Appearance Head Exam: Normal inspection Neck Exam: Normal inspection, Non-tender, Normal alignment Eye Exam: bilateral eye Normal inspection, bilateral eye PERRL, bilateral eye EOMI Ear Exam: bilateral ear Auricle normal Nasal Exam: Normal inspection Mouth: Normal Inspection Pulmonary/Respiratory: Normal inspection, Normal breath sounds, Chest non- tender, Lungs clear Cardiovascular/Chest: Normal inspection, Regular rate, Normal Rhythm Peripheral Pulses: 2+ dorsalis pedis (R), 2+ dorsalis pedis (L), 2+ Radial (R), 2+ Radial (L) Abdominal Exam: Normal bowel sounds, Soft, No tenderness Rectal Exam: Deferred Back Exam: Normal inspection Male Genital Exam: Not done Tendon/ Neuro: Normal sensation, Normal motor function FRONT ELEVATOR OPERATOR Exam: Normal hearing, Normal speech, PERRL Motor/Sensory: Normal sensory function, Normal motor function Neuro/Mental St: Alert, Oriented Appearance: Appropriate appearance, Appropriate insight Eye contact/ Speech: Cooperative, Good eye contact, Normal speech Thoughts/Psych: Normal thought pattern Skin Exam: Normal inspection, Normal color, Warm/dry Labs/Xrays Labs Test 06/11/24 22:56 06/11/24 19:28 06/11/24 18:20 Range/Units POC Glucose 183 H 70-106 mg/dl Urine Color Light-yellow Yellow Urine Clarity Clear Clear Urine pH 5.5 5.0-9.0 Urine Specific [place] 1.010 1.001-1.035 Urine Protein 1+ H Negative Urine Ketones Negative Negative Urine Blood 1+ H Negative /uL Urine Nitrite 1+ H Negative Urine Bilirubin Negative Negative Urine Urobilinogen Normal Negative mg/dL Urine Leukocyte Esterase Negative Negative /uL Urine RBC 2 0 - 3 /hpf Urine Microscopic WBC 3 0-3 /HPF Urine Squamous Epithelial Cells Few <5 /hpf Urine Bacteria None seen None Seen /hpf Urine Mucus Few None Seen Urine Glucose Normal Normal mg/dL Urine Opiates Screen Neg NEGATIVE Urine Fentanyl Screen Neg NEGATIVE Urine Barbiturates Screen Neg NEGATIVE Urine Phencyclidine Screen Neg NEGATIVE Urine Amphetamines Screen Neg NEGATIVE Urine Benzodiazepines Screen Neg NEGATIVE Urine Cocaine Screen Neg NEGATIVE Urine Cannabinoids Screen Neg NEGATIVE Influenza Type A Antigen Negative Negative Influenza Type B Antigen Negative Negative SARS-CoV-2 Antigen (Rapid) Negative NEGATIVE White Blood Count 14.0 H 4.4-10.8 10^3/uL Red Blood Count 5.96 H 4.5-5.90 10^6/uL Hemoglobin 18.7 H 13.5-17.5 g/dL Hematocrit 53.9 H 41.0-53.0 % Mean Corpuscular Volume 90.6 80.0-100.0 fL Mean Corpuscular Hemoglobin 31.4 28.0-32.0 pg Mean Corpuscular Hemoglobin Concent 34.7 32.0-36.0 g/dL Red Cell Distribution Width 14.8 H 11.8-14.3 % Platelet Count 207 140-450 10^3/uL Mean Platelet Volume 8.0 6.9-10.8 fL Neutrophils (%) (Auto) 84.9 H 37.0-80.0 % Lymphocytes (%) (Auto) 4.8 L 10.0-50.0 % Monocytes (%) (Auto) 8.8 0.0-12.0 % Eosinophils (%) (Auto) 1.2 0.0-7.0 % Basophils (%) (Auto) 0.3 0.0-2.0 % Neutrophils # (Auto) 11.9 H 1.6-8.6 10 ^3/uL Lymphocytes # (Auto) 0.7 0.4-5.4 10 ^3/uL Monocytes # (Auto) 1.2 0-1.3 10 ^3/uL Eosinophils # (Auto) 0.2 0-0.8 10 ^3/uL Basophils # (Auto) 0 0-0.2 10 ^3/uL Nucleated Red Blood Cells 0.7 % Sodium Level 136 136-145 mmol/L Potassium Level 4.2 3.5-5.1 mmol/L Chloride Level 103 98-107 mmol/L Carbon Dioxide Level 23 20-31 mmol/L Anion Gap 10 5-15 Blood Urea Nitrogen 15 9-23 mg/dL Creatinine 1.36 H 0.700-1.30 mg/dL Glomerular Filtration Rate Calc 54 >90 mL/min BUN/Creatinine Ratio 11.0 10.0-20.0 Serum Glucose 125 H 74-106 mg/dL Lactic Acid Level 1.4 0.4-2.0 mmol/L Calcium Level 9.9 8.7-10.4 mg/dL Total Bilirubin 0.7 0.2-1.0 mg/dL Aspartate Amino Transferase (AST) 31 13-40 U/L Alanine Aminotransferase (ALT) 27 7-40 U/L Alkaline Phosphatase 103 46-116 U/L B-Type Natriuretic Peptide 181.72 0-100 pg/mL Total Protein 8.9 H 5.7-8.2 g/dL Albumin 5.3 H 3.2-4.8 g/dL Lipase 39 12-53 U/L Plasma/Serum Blood Alcohol < 3.0 <10 mg/dL Assessment/Plan Problem List: (1) Hypotension (2) UTI (urinary tract infection) (3) BRAYDEN (acute kidney injury) (4) Leukocytosis Plan This is a 78 yo male with a history of CHF, GOUT, arthritis, BPH who presents to the hospital with abdominal pain, N/V. Patient found to have 1. Leukocytosis 2. BRAYDEN 3. UTI 4. Left urinary bladder calculi 5. Hypotension 6. hx CHF Plan: Admit Telemetry unit Urology consultation Cardiology consultation, 2D echo IV antibiotic Urine culture, BC x2 Monitor BMP, CBC Stool culture, WBC GI ppx Discussed all above with patient who verbalized agreement and understanding of care plan. All questions were answered. Discussed assessment and care plan with supervising MD. Patient's chart is reviewed and discussed with the nurse practitioner. I agree with the nurse practitioner's evaluation, documentation, assessment and care plan as outlined. Plan discussed with: Patient, Other Code Visit Code Visit Total Time (mins): 45 HUSSEIN DELACRUZ Jun 12, 2024 03:06 DAVID CHA MD Jun 12, 2024 12:31
[2024-06-12] MEDS: SODIUM CHLORIDE 0.9% 1,000 ML IV ONE (03:15)
[2024-06-12 06:01] LABS: Basophils # (auto) 0 10 ^3/uL (0-0.2); Basophils % (auto) 0.2 % (0.0-2.0); Eosinophils # (auto) 0 10 ^3/uL (0-0.8); Lymphocytes # (auto) 0.6 10 ^3/uL (0.4-5.4); Mean Corpuscular Hemoglobin 31.1 pg (28.0-32.0); Mean Corpuscular Hgb Conc. 34.2 g/dL (32.0-36.0); Mean Corpuscular Volume 90.8 fL (80.0-100.0); Monocytes # (auto) 1.1 10 ^3/uL (0-1.3); Monocytes % (auto) 8.9 % (0.0-12.0); Neutrophils # (auto) 10.4 10 ^3/uL (1.6-8.6); Neutrophils % (auto) 85.9 % (37.0-80.0); Nucleated Red Blood Cells % 0.1 %; Platelet Count (auto) 162 10^3/uL (140-450); Red Blood Cells 4.51 10^6/uL (4.5-5.90); White Blood Cell 12.2 10^3/uL (4.4-10.8)
[2024-06-12 06:05] LABS: Potassium 3.7 mmol/L (3.5-5.1); Sodium 138 mmol/L (136-145)
[2024-06-12 06:06] LABS: Anion Gap 9 (5-15)
[2024-06-12 06:11] LABS: Calcium 7.9 mg/dL (8.7-10.4); Carbon Dioxide 20 mmol/L (20-31); Chloride 109 mmol/L (98-107)
[2024-06-12 06:12] LABS: BUN/Creatinine Ratio 14.3 (10.0-20.0); Blood Urea Nitrogen 21 mg/dL (9-23)
[2024-06-12 06:13] LABS: Glucose 118 mg/dL (74-106)
--- NOTE | 2024-06-12 06:48 | ECG ---
[facility] Test Date: 2024-06-11 Test Time: 23:07:56 Pat Name: KENDELL HOFFMAN Department: ER Room: [address] [place] [address] Gender: M Cost Accountant: MYKEL : [id number] Requested By: BONNIE GRULLON Order Number: [id number] Reading MD: Merritt Collins Measurements Intervals Kramer Rate: 75 P: -3 MA: 51 QRS: -17 QRSD: 155 T: 154 QT: 479 QTc: 536 Interpretive Statements Sinus rhythm Short MA interval Left bundle branch block Artifact in lead(s) I,II,III,aVR,aVL,V1,V2 Electronically Signed On 06-12-2024 13:47:14 PDT by Merritt Collins Please click the below link to view image of tracing.
[2024-06-12] MEDS ORDERED: FAMOTIDINE 20 MG TAB PO SCH (10:00)
[2024-06-12] MEDS: PANTOPRAZOLE 40 MG/10 ML VIAL INJ IV SCH (10:27)
[2024-06-12] MEDS: cefTRIAXone 1GM/50ML D5W 50 ML IV SCH (10:27)
[2024-06-12 12:04] VITALS: PULSE 78; RESP 15; O2SAT 94
[2024-06-12] MEDS: MANNITOL 20% SOLN 100 gm/500ml 300 ML IV ONE (12:30)
--- NOTE | 2024-06-12 13:46 | DVHINCON2 ---
Date of service: Jun 12, 2024 Referring Physician Hospitalist Reason for Consultation Bladder stone History of Present Illness 78 year old male with history of CHF, GOUT, and arthritis presents with a chief complaint of abdominal pain. Patient states, that he has been experiencing diffuse abdominal pain with associated symptoms diarrhea x1day. Patient denies any abdominal pain, diarrhea, nausea, vomiting, melena, hematochezia, chest pain, palpitations, dizziness. It was reported patient had an episode of dizziness in ED treatment area with SBP's 70's. Patient with recent blood pressure of 107/50. Patient admitted for further evaluation. Home Meds Active Scripts Metoprolol Tartrate (Metoprolol Tartrate) 25 Mg Tab, 1 TAB PO BID for 30 Days, #60 TAB 5 Refills Prov:KENDELL SEGURA SOUND SYSTEM INSTALLER 03/13/23 Finasteride (Finasteride) 5 Mg Tab, 1 TAB PO DAILY for 30 Days, #30 TAB 11 Refills Prov:KENDELL SEGURA SOUND SYSTEM INSTALLER 03/13/23 Cephalexin Monohydrate (Cephalexin) 500 Mg Cap, 1 CAP PO TID for 7 Days, #21 CAP Prov:IDA KANG MD 03/09/23 Reported Medications Meloxicam (Meloxicam) 15 Mg Tab, 15 MG PO, TAB 03/08/23 Tamsulosin Hcl (Tamsulosin Hcl) 0.4 Mg Cap, 1 CAP PO DAILY 03/08/23 Past Medical History Cardiac: CHF Pulmonary: No pertinent Hx Central Nervous System: No pertinent Hx GI: No pertinent Hx Hemotology/Oncology: No pertinent Hx Hepatobiliary: No pertinent Hx Psychiatric: No pertinent Hx Musculoskeletal: No pertinent Hx Rheumotologic: No pertinent Hx Infectious Disease: No peritnent Hx ENT: No pertinent Hx Renal/: Benign prostatic enlarg. Endocrine: No pertinent Hx Dermatology: No pertinent Hx Others GOUT Family History: FH: cancer G8 MOTHER G8 FATHER Allergies: Coded Allergies: NO KNOWN ALLERGIES (Unverified , 03/01/23) Home Meds Active Scripts Metoprolol Tartrate (Metoprolol Tartrate) 25 Mg Tab, 1 TAB PO BID for 30 Days, #60 TAB 5 Refills Prov:KENDELL SEGURA SOUND SYSTEM INSTALLER 03/13/23 Finasteride (Finasteride) 5 Mg Tab, 1 TAB PO DAILY for 30 Days, #30 TAB 11 Refills Prov:SALBOBBI,RDZ SOUND SYSTEM INSTALLER 03/13/23 Cephalexin Monohydrate (Cephalexin) 500 Mg Cap, 1 CAP PO TID for 7 Days, #21 CAP Prov:IDA KANG MD 03/09/23 Reported Medications Meloxicam (Meloxicam) 15 Mg Tab, 15 MG PO, TAB 03/08/23 Tamsulosin Hcl (Tamsulosin Hcl) 0.4 Mg Cap, 1 CAP PO DAILY 03/08/23 Current Medications Current Medications Medications (Trade) Dose Ordered Sig/Komal Route PRN Reason Start Time Stop Time Status Last Admin Vancomycin HCl 0 ml @ 0 mls/hr UD IV 06/11/24 20:00 Ondansetron HCl (Zofran) 4 mg Q6HPRN PRN IV NAUSEA / VOMITING 06/12/24 03:00 Morphine Sulfate 2 mg Q6HPRN PRN IV PAIN SCALE 7 THRU 10 06/12/24 03:00 Acetaminophen (Tylenol Tablet) 650 mg Q6HPRN PRN PO PAIN SCALE 1-3 OR TEMP>100.4 06/12/24 03:00 Famotidine (Pepcid Tablet) 20 mg BID PO 06/12/24 10:00 06/12/24 05:35 DC Acetaminophen/ Hydrocodone Bitart ([place] 5/325MG Tab) 1 tab Q6HPRN PRN PO PAIN SCALE 1 THRU 6 06/12/24 03:00 Ceftriaxone Sodium 50 ml @ 100 mls/hr DAILY IV 06/12/24 10:00 06/12/24 10:27 Pantoprazole Sodium (Protonix) 40 mg DAILY IV 06/12/24 10:00 06/12/24 12:29 DC 06/12/24 10:27 Finasteride (Proscar Tablet) 5 mg DAILY PO 06/13/24 10:00 Metoprolol Tartrate (Lopressor Tablet) 25 mg BID PO 06/12/24 22:00 Tamsulosin HCl (Flomax) 0.4 mg QPM PO 06/12/24 18:00 Sodium Chloride 1,000 ml @ 75 mls/hr [id number] IV 06/12/24 12:30 Vancomycin HCl 100 ml @ 100 mls/hr Q24H IV 06/12/24 22:00 Review of Systems Constitutional: No symptom reported Ears, Nose, & Throat: No symptom reported Eyes: No symptom reported Pulmonary/Respiratory: No symptom reported Cardiovascular: No symptom reported Gastrointestinal: Abdominal Pain, Diarrhea Genitourinary: No symptom reported Musculoskeletal: No symptom reported Skin: No symptom reported Psychiatric: No symptom reported Endocrine: No symptom reported Hemotologic/Lymphatic: No symptom reported Vital Signs Vital Signs Date Time Temp Pulse Resp B/P (MAP) Pulse Ox O2 Delivery O2 Flow Rate FiO2 06/12/24 12:04 78 15 94 Room Air* 0 21 06/12/24 07:30 111/42 (65) 06/11/24 23:08 99.8 99.8 Physical Exam Vital Signs Date Time Temp Pulse Resp B/P (MAP) Pulse Ox O2 Delivery O2 Flow Rate FiO2 06/12/24 01:36 72 12 98/35 (56) 96 06/11/24 23:20 Nasal Cannula* 3 32 06/11/24 23:08 99.8 99.8 General Appeara: Well developed, Well nourished, Normal Appearance Head Exam: Normal inspection Neck Exam: Normal inspection, Non-tender, Normal alignment Eye Exam: bilateral eye Normal inspection, bilateral eye PERRL, bilateral eye EOMI Ear Exam: bilateral ear Auricle normal Nasal Exam: Normal inspection Mouth: Normal Inspection Pulmonary/Respiratory: Normal inspection, Normal breath sounds, Chest non- tender, Lungs clear Cardiovascular/Chest: Normal inspection, Regular rate, Normal Rhythm Peripheral Pulses: 2+ dorsalis pedis (R), 2+ dorsalis pedis (L), 2+ Radial (R), 2+ Radial (L) Abdominal Exam: Normal bowel sounds, Soft, No tenderness Rectal Exam: Deferred Back Exam: Normal inspection Male Genital Exam: Not done Tendon/ Neuro: Normal sensation, Normal motor function LOSS PREVENTION MANAGER Exam: Normal hearing, Normal speech, PERRL Motor/Sensory: Normal sensory function, Normal motor function Neuro/Mental St: Alert, Oriented Appearance: Appropriate appearance, Appropriate insight Eye contact/ Speech: Cooperative, Good eye contact, Normal speech Thoughts/Psych: Normal thought pattern Skin Exam: Normal inspection, Normal color, Warm/dry Labs/Diagnostic Data Labs Test 06/12/24 05:20 06/11/24 22:56 06/11/24 19:28 06/11/24 18:20 Range/Units White Blood Count 12.2 H 4.4-10.8 10^3/uL Red Blood Count 4.51 4.5-5.90 10^6/uL Hemoglobin 14.0 # 13.5-17.5 g/dL Hematocrit 41.0 # 41.0-53.0 % Mean Corpuscular Volume 90.8 80.0-100.0 fL Mean Corpuscular Hemoglobin 31.1 28.0-32.0 pg Mean Corpuscular Hemoglobin Concent 34.2 32.0-36.0 g/dL Red Cell Distribution Width 14.0 11.8-14.3 % Platelet Count 162 140-450 10^3/uL Mean Platelet Volume 8.1 6.9-10.8 fL Neutrophils (%) (Auto) 85.9 H 37.0-80.0 % Lymphocytes (%) (Auto) 5.0 L 10.0-50.0 % Monocytes (%) (Auto) 8.9 0.0-12.0 % Eosinophils (%) (Auto) 0.0 0.0-7.0 % Basophils (%) (Auto) 0.2 0.0-2.0 % Neutrophils # (Auto) 10.4 H 1.6-8.6 10 ^3/uL Lymphocytes # (Auto) 0.6 0.4-5.4 10 ^3/uL Monocytes # (Auto) 1.1 0-1.3 10 ^3/uL Eosinophils # (Auto) 0 0-0.8 10 ^3/uL Basophils # (Auto) 0 0-0.2 10 ^3/uL Nucleated Red Blood Cells 0.1 % Sodium Level 138 136-145 mmol/L Potassium Level 3.7 3.5-5.1 mmol/L Chloride Level 109 H 98-107 mmol/L Carbon Dioxide Level 20 20-31 mmol/L Anion Gap 9 5-15 Blood Urea Nitrogen 21 9-23 mg/dL Creatinine 1.47 H 0.700-1.30 mg/dL Glomerular Filtration Rate Calc 49 >90 mL/min BUN/Creatinine Ratio 14.3 10.0-20.0 Serum Glucose 118 H 74-106 mg/dL Hemoglobin A1c 5.2 <5.7 % A1C Calcium Level 7.9 L 8.7-10.4 mg/dL Random Vancomycin Level 18.4 H 5-10 ug/mL POC Glucose 183 H 70-106 mg/dl Urine Color Light-yellow Yellow Urine Clarity Clear Clear Urine pH 5.5 5.0-9.0 Urine Specific [place] 1.010 1.001-1.035 Urine Protein 1+ H Negative Urine Ketones Negative Negative Urine Blood 1+ H Negative /uL Urine Nitrite 1+ H Negative Urine Bilirubin Negative Negative Urine Urobilinogen Normal Negative mg/dL Urine Leukocyte Esterase Negative Negative /uL Urine RBC 2 0 - 3 /hpf Urine Microscopic WBC 3 0-3 /HPF Urine Squamous Epithelial Cells Few <5 /hpf Urine Bacteria None seen None Seen /hpf Urine Mucus Few None Seen Urine Glucose Normal Normal mg/dL Urine Opiates Screen Neg NEGATIVE Urine Fentanyl Screen Neg NEGATIVE Urine Barbiturates Screen Neg NEGATIVE Urine Phencyclidine Screen Neg NEGATIVE Urine Amphetamines Screen Neg NEGATIVE Urine Benzodiazepines Screen Neg NEGATIVE Urine Cocaine Screen Neg NEGATIVE Urine Cannabinoids Screen Neg NEGATIVE Influenza Type A Antigen Negative Negative Influenza Type B Antigen Negative Negative SARS-CoV-2 Antigen (Rapid) Negative NEGATIVE Lactic Acid Level 1.4 0.4-2.0 mmol/L Total Bilirubin 0.7 0.2-1.0 mg/dL Aspartate Amino Transferase (AST) 31 13-40 U/L Alanine Aminotransferase (ALT) 27 7-40 U/L Alkaline Phosphatase 103 46-116 U/L B-Type Natriuretic Peptide 181.72 0-100 pg/mL Total Protein 8.9 H 5.7-8.2 g/dL Albumin 5.3 H 3.2-4.8 g/dL Lipase 39 12-53 U/L Plasma/Serum Blood Alcohol < 3.0 <10 mg/dL PATIENT: KENDELL HOFFMAN RACCT: [id number] UNIT: [id number] : 1945 LOC: ER ROOM / BED: / AGE / SEX: 78 / M ADM STATUS: REG ER SERVICE [id number] ORDERING PHYSICIAN: BONNIE GRULLON PAC PROCEDURE(s): CTCAP - CHST AB PEL WO CON-NO IV/ORAL REASON: Shortness of breath/ ABD PAIN ORDER NUMBER(s): [id number], ACCESSION NUMBER(s): [id number] CLINICAL HISTORY: Shortness of breath/ ABD PAIN TECHNIQUE: CT of the chest, abdomen and pelvis was performed with IV contrast without IV contrast. This exam was performed according to our departmental dose optimization program. Up-to-date CT equipment and radiation dose reduction techniques are utilized as appropriate. CTDI: 21.64+ 0.14 DLP: 1604.07 COMPARISON: CT CT AB PEL WO CON-NO ORAL OR IV on DOS: 03/07/23 CTA chest from 03/12/2023 FINDINGS: CHEST FINDINGS: Lower Neck: Small hypodense right thyroid nodule on series 2, image 10. Axilla, Mediastinum and Tania: No mediastinal or axillary lymphadenopathy. Limited evaluation of the tania in the absence of intravenous contrast. Heart and Great Vessels: Normal-sized heart with trace pericardial fluid. Moderate aortic valve calcifications. The thoracic aorta is normal in caliber containing Mild calcified plaque. The central pulmonary arteries are normal caliber. Airway, Lungs and Pleura: Trachea and central airways are patent. Linear areas of atelectasis or scarring in the bilateral lungs. No pleural effusion, pneumothorax, or airspace consolidation. Chest Wall and Osseous Structures: Degenerative Changes of the bilateral shoulders. There is multilevel thoracic spondylosis. No destructive osseous lesion. Abdomen and Pelvis Findings: Liver and Biliary system: Normal-sized liver. No definite hepatic lesion. The gallbladder is normal caliber. There is no biliary ductal dilatation. Spleen: Unremarkable. Adrenal Glands and Kidneys: Normal adrenal glands. Mild nonspecific perinephric stranding. There are bilateral renal hypodensities not optimally evaluated without contrast, measuring up to 6.1 cm in the right lower pole on series 2, image 150. There are small nonobstructing left renal calculi. There is no hydron ephrosis in either kidney. There is a hemorrhagic cyst in the interpolar left kidney. Pancreas and Retroperitoneum: Unremarkable. Aorta and Major Vessels: Aortoiliac vessels are normal in caliber containing mild calcified atherosclerotic plaque. Bowel, Mesentery and Peritoneal space: Normal caliber small and large bowel. There is mild colonic diverticulosis. Normal appendix. There is no free air or fluid collection. Pelvis: Marked prostatomegaly. There is a prominent 3.5 cm calculus layering in the dependent left urinary bladder. Urinary bladder is mildly distended. No pelvic lymphadenopathy. Abdominal wall and Osseous Structures: Small fat containing bilateral inguinal and umbilical hernias. Multilevel lumbar spondylosis. No destructive osseous lesion. 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 IMPRESSION: 1. Marked prostatomegaly. 2. Prominent 3.5 cm calculus in the dependent left urinary bladder. 3. Nonobstructing left renal calculi. 4. Moderate aortic valve calcifications. 5. Mild colonic diverticulosis. 6. Bilateral renal hypodensities likely cysts although not optimally evaluated without contrast. ATED BY: SE TAMAYO MD DICTATED DATE/TIME: 06/12/24205 SIGNED BY: SE TAMAYO MD SIGNED DATE/TIME: 06/12/24 020 CC: Assessment Large bladder calculus BPH Left renal stone Renal cysts Hemorrhagic renal cyst Plan/Recommendation Cystolitholapaxy, possible TURP as inpatient if he will remain in the hospital until 06/16/24. Otherwise, we may schedule the surgery as outpatient. Plan discussed with: Patient, Other KOURTNEY ARAUJO MD Jun 12, 2024 13:46
[2024-06-12] MEDS: SODIUM CHLORIDE 0.9% 1,000 ML IV SCH (13:50)
[2024-06-12] MEDS: TAMSULOSIN HYDROCHLORIDE 0.4 MG CAP PO SCH (17:21)
[2024-06-12 17:31] VITALS: BP 122/72; PULSE 100; RESP 19; TEMP 98.1; O2SAT 94
[2024-06-12 20:00] VITALS: PULSE 103
[2024-06-12 21:00] VITALS: BP 143/79; PULSE 97; TEMP 100.2; O2SAT 92
[2024-06-12] MEDS ORDERED: VANCOMYCIN 750MG KIT 100 ML IV SCH (22:00)
[2024-06-12] MEDS: VANCOMYCIN 750MG KIT 100 ML IV SCH (22:30)
[2024-06-12] MEDS: METOPROLOL TARTRATE 25 MG TAB PO SCH (22:47)
[2024-06-13 01:00] VITALS: BP 123/67; PULSE 74; RESP 16; TEMP 99.3; O2SAT 92
--- NOTE | 2024-06-13 01:59 | DVHSR ---
APPROVED REPORT EXAM: Two-dimensional and M-mode echocardiogram with Doppler and color Doppler. Blood Pressure: 115/50 mmHg INDICATION hypotension RISK FACTORS Height: 68, Weight: 186 DIMENSIONS LVDd (3.8-5.7cm)LA (2D)4.9 (1.9-4.0cm)Aortic Root3.7 (2.0-3.7cm) EF (%) 42.0 (55-70%)Rt. Atrium3.8 (1.9-4.0cm)Asc. Aorta cm Mitral Valve MitralMitral Stenosis E/A ratio0.02D MVAcm2 Aortic Valve Aortic ValveAortic Stenosis V10.89m/Yannick Mean GR.20mmHg V22.85m/Yannick Peak GR.34mmHg LVOT Diameter2.4 (1.8-2.4cm)Doppler AVA1.41cm2 Pulmonic Valve V21.06m/s Other Information Technically limited study due to body habitus and abnormal rhythm. Conclusion 1. MILD LVH AND MILD LV DIASTOLIC DYSFUNCTION LV EF IS 50% AND IS LOW NORMAL 2. SEVERE DYSKINESIS OF IVS 3. MODERATELY DILATED LEFT ATRIUM 4. HEAVILY CALCIFIED AORTIC LEAFLETS 5. MDERATE DEGREE AORTIC STENOSIS ,AORTIC VALVE AREA IS 1.41 CM SQUARE 6. NO EFFUSION
[2024-06-13 08:00] VITALS: PULSE 68
--- NOTE | 2024-06-13 08:45 | DVH ---
CHEST RADIOGRAPH Indication: Procedure Technique: Single frontal view of the chest was obtained Comparison: XY CHEST PORTABLE on DOS: 03/10/23 FINDINGS: The cardiac silhouette is unremarkable. The lungs demonstrate patchy airspace opacities. The pulmonar y vasculature is prominent. There is no pleural effusion.. There is no pneumothorax. IMPRESSION: 1. Pulmonary vascular congestion and bilateral patchy airspace opacities.
[2024-06-13 09:00] VITALS: BP 138/79; PULSE 70; RESP 16; TEMP 98.2; O2SAT 94
[2024-06-13 09:10] LABS: Potassium 3.6 mmol/L (3.5-5.1); Sodium 139 mmol/L (136-145)
[2024-06-13 09:11] LABS: Anion Gap 8 (5-15); Carbon Dioxide 22 mmol/L (20-31)
[2024-06-13 09:14] LABS: Basophils # (auto) 0.1 10 ^3/uL (0-0.2); Basophils % (auto) 1.7 % (0.0-2.0); Eosinophils # (auto) 0.2 10 ^3/uL (0-0.8); Eosinophils % (auto) 3.2 % (0.0-7.0); Hematocrit 44.1 % (41.0-53.0); Hemoglobin 14.9 g/dL (13.5-17.5); Lymphocytes % (auto) 14.1 % (10.0-50.0); Mean Corpuscular Hemoglobin 31.2 pg (28.0-32.0); Mean Corpuscular Hgb Conc. 33.9 g/dL (32.0-36.0); Mean Corpuscular Volume 91.9 fL (80.0-100.0); Monocytes # (auto) 1.2 10 ^3/uL (0-1.3); Monocytes % (auto) 17.2 % (0.0-12.0); Neutrophils # (auto) 4.4 10 ^3/uL (1.6-8.6); Neutrophils % (auto) 63.8 % (37.0-80.0); Platelet Count (auto) 172 10^3/uL (140-450); Red Blood Cells 4.79 10^6/uL (4.5-5.90); Red Cell Distribution Width 14.2 % (11.8-14.3); White Blood Cell 6.9 10^3/uL (4.4-10.8)
[2024-06-13 09:16] LABS: BUN/Creatinine Ratio 14.7 (10.0-20.0); Blood Urea Nitrogen 17 mg/dL (9-23); Glucose 92 mg/dL (74-106)
[2024-06-13 09:18] LABS: INR 1.08 (0.9-1.15); Partial Thromboplastin Time 33.5 SEC (24.5-34.5); Prothrombin Time 11.4 sec (9.3-11.8)
[2024-06-13 09:19] LABS: Chloride 109 mmol/L (98-107)
[2024-06-13] MEDS: FINASTERIDE 5 MG TAB PO SCH (10:06)
[2024-06-13] MEDS ORDERED: DIPH2.5T73 PO (14:04)
--- NOTE | 2024-06-13 14:11 | DVHDS2 ---
Discharge Summary Date of Admission Jun 12, 2024 at 02:55 Date of Discharge: Jun 13, 2024 Labs/Diagnostic Data: Laboratory Results Test 06/13/24 09:21 06/13/24 08:44 06/12/24 05:20 06/11/24 22:56 Stool for White Cells None seen White Blood Count 6.9 10^3/uL (4.4-10.8) Red Blood Count 4.79 10^6/uL (4.5-5.90) Hemoglobin 14.9 g/dL (13.5-17.5) Hematocrit 44.1 % (41.0-53.0) Mean Corpuscular Volume 91.9 fL (80.0-100.0) Mean Corpuscular Hemoglobin 31.2 pg (28.0-32.0) Mean Corpuscular Hemoglobin Concent 33.9 g/dL (32.0-36.0) Red Cell Distribution Width 14.2 % (11.8-14.3) Platelet Count 172 10^3/uL (140-450) Mean Platelet Volume 7.9 fL (6.9-10.8) Neutrophils (%) (Auto) 63.8 % (37.0-80.0) Lymphocytes (%) (Auto) 14.1 % (10.0-50.0) Monocytes (%) (Auto) 17.2 % (0.0-12.0) Eosinophils (%) (Auto) 3.2 % (0.0-7.0) Basophils (%) (Auto) 1.7 % (0.0-2.0) Neutrophils # (Auto) 4.4 10 ^3/uL (1.6-8.6) Lymphocytes # (Auto) 1.0 10 ^3/uL (0.4-5.4) Monocytes # (Auto) 1.2 10 ^3/uL (0-1.3) Eosinophils # (Auto) 0.2 10 ^3/uL (0-0.8) Basophils # (Auto) 0.1 10 ^3/uL (0-0.2) Nucleated Red Blood Cells 0.0 % Prothrombin Time 11.4 sec (9.3-11.8) Prothrombin Time INR 1.08 (0.9-1.15) Activated Partial Thromboplast Time 33.5 SEC (24.5-34.5) Sodium Level 139 mmol/L (136-145) Potassium Level 3.6 mmol/L (3.5-5.1) Chloride Level 109 mmol/L (98-107) Carbon Dioxide Level 22 mmol/L (20-31) Anion Gap 8 (5-15) Blood Urea Nitrogen 17 mg/dL (9-23) Creatinine 1.16 mg/dL (0.700-1.30) Glomerular Filtration Rate Calc 65 mL/min (>90) BUN/Creatinine Ratio 14.7 (10.0-20.0) Serum Glucose 92 mg/dL (74-106) Calcium Level 9.0 mg/dL (8.7-10.4) Hemoglobin A1c 5.2 % A1C (<5.7) Random Vancomycin Level 18.4 ug/mL (5-10) POC Glucose 183 mg/dl (70-106) Test 06/11/24 19:28 06/11/24 18:20 Urine Color Light-yellow (Yellow) Urine Clarity Clear (Clear) Urine pH 5.5 (5.0-9.0) Urine Specific [place] 1.010 (1.001-1.035) Urine Protein 1+ (Negative) Urine Ketones Negative (Negative) Urine Blood 1+ /uL (Negative) Urine Nitrite 1+ (Negative) Urine Bilirubin Negative (Negative) Urine Urobilinogen Normal mg/dL (Negative) Urine Leukocyte Esterase Negative /uL (Negative) Urine RBC 2 /hpf (0 - 3) Urine Microscopic WBC 3 /HPF (0-3) Urine Squamous Epithelial Cells Few /hpf (<5) Urine Bacteria None seen /hpf (None Seen) Urine Mucus Few (None Seen) Urine Glucose Normal mg/dL (Normal) Urine Opiates Screen Neg (NEGATIVE) Urine Fentanyl Screen Neg (NEGATIVE) Urine Barbiturates Screen Neg (NEGATIVE) Urine Phencyclidine Screen Neg (NEGATIVE) Urine Amphetamines Screen Neg (NEGATIVE) Urine Benzodiazepines Screen Neg (NEGATIVE) Urine Cocaine Screen Neg (NEGATIVE) Urine Cannabinoids Screen Neg (NEGATIVE) Influenza Type A Antigen Negative (Negative) Influenza Type B Antigen Negative (Negative) SARS-CoV-2 Antigen (Rapid) Negative (NEGATIVE) Lactic Acid Level 1.4 mmol/L (0.4-2.0) Total Bilirubin 0.7 mg/dL (0.2-1.0) Aspartate Amino Transferase (AST) 31 U/L (13-40) Alanine Aminotransferase (ALT) 27 U/L (7-40) Alkaline Phosphatase 103 U/L (46-116) B-Type Natriuretic Peptide 181.72 pg/mL (0-100) Total Protein 8.9 g/dL (5.7-8.2) Albumin 5.3 g/dL (3.2-4.8) Lipase 39 U/L (12-53) Plasma/Serum Blood Alcohol < 3.0 mg/dL (<10) Other Laboratory Tests 06/13/24 08:44 Brief Hx & Hospital Course: Mr. Norm Martinez is a 78 year old male with history of CHF, GOUT, and arthritis presents with a chief complaint of abdominal pain. Patient states, that he has been experiencing diffuse abdominal pain with associated symptoms diarrhea x1day. Patient denies any abdominal pain, diarrhea, nausea, vomiting, melena, hematochezia, chest pain, palpitations, dizziness. It was reported patient had an episode of dizziness in ED treatment area with SBP's 70's. Patient with recent blood pressure of 107/50. Patient admitted for further evaluation. He is admitted mainly for complaints of loose stools. Patient does not give any symptoms associated with the his urinary bladder or urine. Patient's stool WBCs negative. Urinalysis negative for infection. Patient says his diarrhea has improved. Patient is advised to continue the [place] till as needed. Due to large stone in his bladder he is seen by urologist who recommended procedure to break up the large stone in the bladder as well as a TURP given his enlarged prostate. His kidney function is normal. He is advised to continue his prostate medications at home. Otherwise given overall patient is clinically stable he does not want to stay till Saturday to have the procedures done here and wants to go home. Given he is not having any bladder or urine problems he wants to have this taken care of as an outpatient basis with urologist. Given his diarrhea has improved and no infectious etiology identified it is felt he could be safely discharged home with close outpatient follow up. I have talked with the patient regarding his hospital diagnosis, treatment he received, discharge medications, discharge instructions and follow-up plan of care along with the nurse at bedside. He has verbalized understanding of these and agree with care plan as outlined. Consults/Reason for consult Assessment Large bladder calculus BPH Left renal stone Renal cysts Hemorrhagic renal cyst Plan/Recommendation Cystolitholapaxy, possible TURP as inpatient if he will remain in the hospital until 06/16/24. Otherwise, we may schedule the surgery as outpatient. Plan discussed with: Patient, Other KOURTNEY ZIMMERMAN MD Jun 12, 2024 13:46 IMPRESSION: 1. Marked prostatomegaly. 2. Prominent 3.5 cm calculus in the dependent left urinary bladder. 3. Nonobstructing left renal calculi. 4. Moderate aortic valve calcifications. 5. Mild colonic diverticulosis. 6. Bilateral renal hypodensities likely cysts although not optimally evaluated without contrast. ATED BY: SE TAMAYO MD DICTATED DATE/TIME: 06/12/24 0206 Operations or Procedures APPROVED REPORT EXAM: Two-dimensional and M-mode echocardiogram with Doppler and color Doppler. Blood Pressure: 115/50 mmHg INDICATION hypotension RISK FACTORS Height: 68, Weight: 186 DIMENSIONS LVDd (3.8-5.7cm) LA (2D) 4.9 (1.9-4.0cm) Aortic Root 3.7 (2.0- 3.7cm) EF (%) 42.0 (55-70%) Rt. Atrium 3.8 (1.9-4.0cm) Asc. Aorta cm Mitral Valve Mitral Mitral Stenosis E/A ratio 0.0 2D MVA cm2 Aortic Valve Aortic Valve Aortic Stenosis V1 0.89m/s AO Mean GR. 20mmHg V2 2.85m/s AO Peak GR. 34mmHg LVOT Diameter 2.4 (1.8-2.4cm) Doppler SANDI 1.41cm2 Pulmonic Valve V2 1.06m/s Other Information Technically limited study due to body habitus and abnormal rhythm. Conclusion 1. MILD LVH AND MILD LV DIASTOLIC DYSFUNCTION LV EF IS 50% AND IS LOW NORMAL 2. SEVERE DYSKINESIS OF IVS 3. MODERATELY DILATED LEFT ATRIUM 4. HEAVILY CALCIFIED AORTIC LEAFLETS 5. MDERATE DEGREE AORTIC STENOSIS ,AORTIC VALVE AREA IS 1.41 CM SQUARE 6. NO EFFUSION SIGNED BY: KHUSHBU LOPEZ MD SIGNED DATE/TIME: 06/13/24 0159 Condition at Discharge: Stable Final Diagnosis/Problems List Noninfectious diarrhea, large stone in the bladder asymptomatic, BPH Secondary Diagnosis: Moderate aortic valve stenosis Discharge Disposition: Home Discharge Instruct/Medications Diet: Consistent carbohydrate, Cardiac 2g Na,low cholest Activity: No Restrictions, As Tolerated Follow Up/Referral: With primary care physician 1-2 weeks and referral to print support specialist for aortic stenosis eval. Urologist Dr. Kourtney Zimmerman in 2-3 weeks for further management of enlarged prostate and bladder stone. Medications: Lomotil as prescribed for diarrhea. Continue other home medications for prostate. Changed Medications: Diphenoxylate W/ Atropine (Lomotil) 2.5 Mg Tab 1 TAB PO TID PRN MDD ., #10 TAB (Medication details modified) Continued Medications: Finasteride (Finasteride) 5 Mg Tab 1 TAB PO DAILY for 30 Days, #30 TAB 11 Refills Metoprolol Tartrate (Metoprolol Tartrate) 25 Mg Tab 1 TAB PO BID for 30 Days, #60 TAB 5 Refills Tamsulosin Hcl (Tamsulosin Hcl) 0.4 Mg Cap 1 CAP PO DAILY Discontinued Medications: Cephalexin Monohydrate (Cephalexin) 500 Mg Cap 1 CAP PO TID for 7 Days, #21 CAP Meloxicam (Meloxicam) 15 Mg Tab 15 MG PO, TAB Discharge Statement: "Patient was advised to return to the ER or call 911 if any headaches, dizziness, shortness of breath, chest pain, abdominal pain, bleeding, fevers, or worsening of medical condition. Patient was counseled about treatment plan, medications, possible side effects, patientverbalized understanding. All questions were answered to the best of my ability. This discharge took greater then 30 minutes in planning, reviewing documentation, counseling the patient, and discussing with other team members." ASSESSMENT ASSESSMENT Assessment Noninfectious diarrhea, large stone in the bladder asymptomatic, BPH DAVID CHA MD Jun 13, 2024 14:11
--- NOTE | 2024-06-13 21:09 | DVHINCON2 ---
Date of service: Jun 13, 2024 Referring Physician Dwaine Reason for Consultation Hypotension History of Present Illness This is a 79 year old female with a PMH of CHF, GOUT, and arthritis who presented to the ED with c/o abdominal pain and blood pressure concerns. Patient states, that he has been experiencing diffuse abdominal pain with associated symptoms of nausea, vomiting, and diarrhea x1day. Additionally the patient states his blood pressure was elevated at today's reading. Patient relays, additional symptoms of change in gait and motor functions as a result or flare- up. Urinalysis confirmed a UTI. UDS is negative. Viral swabs are negative. CT of the chest, abdomen and pelvis shows marked prostatomegaly. Prominent 3.5 cm calculus in the dependent left urinary bladder. Nonobstructing left renal calculi. Moderate aortic valve calcifications. Mild colonic diverticulosis. Bilateral renal hypodensities likely cysts although not optimally evaluated without contrast. Chest x-ray shows pulmonary vascular congestion and bilateral patchy airspace opacities. Patient was admitted to the hospital. I am asked to consult on this patient. Family History: FH: cancer G8 MOTHER G8 FATHER Allergies: Coded Allergies: NO KNOWN ALLERGIES (Unverified , 03/01/23) Home Meds Active Scripts Metoprolol Tartrate (Metoprolol Tartrate) 25 Mg Tab, 1 TAB PO BID for 30 Days, #60 TAB 5 Refills Prov:KENDELL SEGURA [employer] 03/13/23 Finasteride (Finasteride) 5 Mg Tab, 1 TAB PO DAILY for 30 Days, #30 TAB 11 Refills Prov:KENDELL SEGURA [employer] 03/13/23 Reported Medications Diphenoxylate W/ Atropine (Lomotil) 2.5 Mg Tab, 1 TAB PO TID PRN MDD ., #10 TAB 06/13/24 Tamsulosin Hcl (Tamsulosin Hcl) 0.4 Mg Cap, 1 CAP PO DAILY 03/08/23 Discontinued Reported Medications Meloxicam (Meloxicam) 15 Mg Tab, 15 MG PO, TAB 03/08/23 Discontinued Scripts Cephalexin Monohydrate (Cephalexin) 500 Mg Cap, 1 CAP PO TID for 7 Days, #21 CAP Prov:IDA KANG MD 03/09/23 Current Medications Current Medications Medications (Trade) Dose Ordered Sig/Komal Route PRN Reason Start Time Stop Time Status Last Admin Finasteride (Proscar Tablet) 5 mg DAILY PO 06/13/24 10:00 06/13/24 17:32 DC 06/13/24 10:06 Metoprolol Tartrate (Lopressor Tablet) 25 mg BID PO 06/12/24 22:00 06/13/24 17:32 DC 06/13/24 10:07 Vancomycin HCl 100 ml @ 100 mls/hr Q24H IV 06/12/24 22:00 06/12/24 22:32 DC Vancomycin HCl 100 ml @ 100 mls/hr Q24H IV 06/12/24 22:30 06/13/24 17:32 DC Review of Systems Constitutional: reports: fatigue, weakness, others (Unsteady gait); denies: chills, diaphoresis, fever, malaise, sweats EENTM: denies: blurred vision, double vision, ear bleeding, ear discharge, ear drainage, ear pain, ear ringing, eye pain, eye redness, hearing loss, mouth pain, mouth swelling, nasal discharge, nose bleeding, nose congestion, nose pain, photophobia, tearing, throat pain, throat swelling, voice changes, others Respiratory: denies: cough, hemoptysis, orthopnea, SOB at rest, shortness of breath, SOB with excertion, stridor, wheezing, others Cardiovascular: denies: chest pain, dizzy spells, diaphoresis, Dyspnea on exertion, edema, irregular heart beat, left arm pain, lightheadedness, palpitations, PND, syncope, others Gastrointestinal: reports: abdominal pain, diarrhea, nausea, vomiting; denies: abdomen distended, blood streaked bowels, constipated, dysphagia, difficulty swallowing, hematemesis, melena, poor appetite, poor fluid intake, rectal bleeding, rectal pain, others Genitourinary: denies: burning, dysuria, flank pain, frequency, hematuria, incontinence, penile discharge, penile sore, pain, testicle pain, testicle swelling, urgency, others Neurological: denies: dizziness, fainting, headache, left sided numbness, left sided weakness, numbness, paresthesia, pre-existing deficit, right sided numbness, right sided weakness, seizure, speech problems, tingling, tremors, weakness, others Musculoskeletal: reports: others ( unsteady gait); denies: back pain, gout, joint pain, joint swelling, muscle pain, muscle stiffness, neck pain Integumetry: denies: bruises, change in color, change in hair/nails, dryness, laceration, lesions, lumps, rash, wounds, others Allergic/Immunocompromised: denies: Difficulty Healing, Frequent Infections, Hives, Itching, others Hematologic/Lymphatic: denies: anemia, blood clots, easy bleeding, easy bruising, swollen glands, others Endocrine: denies: excessive hunger, excessive sweating, excessive thirst, excessive urination, flushing, intolerance to cold, intolerance to heat, unexplained weight gain, unexplained weight loss, others Psychiatric: denies: anxiety, bipolar disorder, depression, hopeless, panic disorder, schizophrenia, sleepless, suicidal, others All Other Systems: Reviewed and Negative Vital Signs Vital Signs Date Time Temp Pulse Resp B/P (MAP) Pulse Ox O2 Delivery O2 Flow Rate FiO2 06/13/24 11:07 68 147/80 06/13/24 09:00 98.2 16 94 98.2 06/13/24 08:00 Room Air* 0 21 Physical Exam GENERAL: Alert and oriented x 3. No acute distress. EYES: PERRL, EOMI. Anicteric. HENT: Moist mucous membranes. LUNGS: Clear to auscultation bilaterally. CARDIOVASCULAR: Regular rate and rhythm. ABDOMEN: Soft, non-tender and non-distended. EXTREMITIES: No edema. NEUROLOGIC: No focal neurological deficits. SKIN: Warm, dry. Labs/Diagnostic Data Labs Test 06/13/24 09:21 06/13/24 08:44 06/12/24 05:20 06/11/24 22:56 Range/Units Stool for White Cells None seen White Blood Count 6.9 # 4.4-10.8 10^3/uL Red Blood Count 4.79 4.5-5.90 10^6/uL Hemoglobin 14.9 13.5-17.5 g/dL Hematocrit 44.1 41.0-53.0 % Mean Corpuscular Volume 91.9 80.0-100.0 fL Mean Corpuscular Hemoglobin 31.2 28.0-32.0 pg Mean Corpuscular Hemoglobin Concent 33.9 32.0-36.0 g/dL Red Cell Distribution Width 14.2 11.8-14.3 % Platelet Count 172 140-450 10^3/uL Mean Platelet Volume 7.9 6.9-10.8 fL Neutrophils (%) (Auto) 63.8 37.0-80.0 % Lymphocytes (%) (Auto) 14.1 10.0-50.0 % Monocytes (%) (Auto) 17.2 H 0.0-12.0 % Eosinophils (%) (Auto) 3.2 0.0-7.0 % Basophils (%) (Auto) 1.7 0.0-2.0 % Neutrophils # (Auto) 4.4 1.6-8.6 10 ^3/uL Lymphocytes # (Auto) 1.0 0.4-5.4 10 ^3/uL Monocytes # (Auto) 1.2 0-1.3 10 ^3/uL Eosinophils # (Auto) 0.2 0-0.8 10 ^3/uL Basophils # (Auto) 0.1 0-0.2 10 ^3/uL Nucleated Red Blood Cells 0.0 % Prothrombin Time 11.4 9.3-11.8 sec Prothrombin Time INR 1.08 0.9-1.15 Activated Partial Thromboplast Time 33.5 24.5-34.5 SEC Sodium Level 139 136-145 mmol/L Potassium Level 3.6 3.5-5.1 mmol/L Chloride Level 109 H 98-107 mmol/L Carbon Dioxide Level 22 20-31 mmol/L Anion Gap 8 5-15 Blood Urea Nitrogen 17 9-23 mg/dL Creatinine 1.16 0.700-1.30 mg/dL Glomerular Filtration Rate Calc 65 >90 mL/min BUN/Creatinine Ratio 14.7 10.0-20.0 Serum Glucose 92 74-106 mg/dL Calcium Level 9.0 8.7-10.4 mg/dL Hemoglobin A1c 5.2 <5.7 % A1C Random Vancomycin Level 18.4 H 5-10 ug/mL POC Glucose 183 H 70-106 mg/dl Test 06/11/24 19:28 06/11/24 18:20 Range/Units Urine Color Light-yellow Yellow Urine Clarity Clear Clear Urine pH 5.5 5.0-9.0 Urine Specific Tea 1.010 1.001-1.035 Urine Protein 1+ H Negative Urine Ketones Negative Negative Urine Blood 1+ H Negative /uL Urine Nitrite 1+ H Negative Urine Bilirubin Negative Negative Urine Urobilinogen Normal Negative mg/dL Urine Leukocyte Esterase Negative Negative /uL Urine RBC 2 0 - 3 /hpf Urine Microscopic WBC 3 0-3 /HPF Urine Squamous Epithelial Cells Few <5 /hpf Urine Bacteria None seen None Seen /hpf Urine Mucus Few None Seen Urine Glucose Normal Normal mg/dL Urine Opiates Screen Neg NEGATIVE Urine Fentanyl Screen Neg NEGATIVE Urine Barbiturates Screen Neg NEGATIVE Urine Phencyclidine Screen Neg NEGATIVE Urine Amphetamines Screen Neg NEGATIVE Urine Benzodiazepines Screen Neg NEGATIVE Urine Cocaine Screen Neg NEGATIVE Urine Cannabinoids Screen Neg NEGATIVE Influenza Type A Antigen Negative Negative Influenza Type B Antigen Negative Negative SARS-CoV-2 Antigen (Rapid) Negative NEGATIVE Lactic Acid Level 1.4 0.4-2.0 mmol/L Total Bilirubin 0.7 0.2-1.0 mg/dL Aspartate Amino Transferase (AST) 31 13-40 U/L Alanine Aminotransferase (ALT) 27 7-40 U/L Alkaline Phosphatase 103 46-116 U/L B-Type Natriuretic Peptide 181.72 0-100 pg/mL Total Protein 8.9 H 5.7-8.2 g/dL Albumin 5.3 H 3.2-4.8 g/dL Lipase 39 12-53 U/L Plasma/Serum Blood Alcohol < 3.0 <10 mg/dL Microbiology Date/Time Source Procedure Growth Status 06/11/24 20:15 Blood Blood Culture - Preliminary NO GROWTH AFTER 48 HOURS OF INCUBATION. Resulted Assessment Leukocytosis. BRAYDEN. UTI. Left urinary bladder calculi. Hypotension. History of CHF. Plan/Recommendation I agree with your ongoing assessment and care of plan. IV antibiotics as ordered. Metoprolol. GI prophylactics. Echocardiogram. Morphine for pain management. Additional plan as per the hospital course. A total of 45 minutes was spent reviewing the patient record, examining the patient, making a diagnostic and therapeutic plan, discussing this plan with medical personnel, following up on diagnostic studies and following the patient for clinical stability excluding any and all procedures. At least 50% of this time was spent in direct, [id number] contact. Plan discussed with: Patient KHUSHBU LOPEZ MD Jun 13, 2024 21:09
== END 2024-06-13 17:20 | disposition home or self-care (01) | DRG 872 ==
LOC: ER 18:12 → OVERFLOW 06-12 02:55 → TELE-EAST 06-12 16:19
PROVIDERS: ADMIT Hospitalist; ATTEND Hospitalist
DX: A41.9 Sepsis, unspecified organism (principal); N39.0 Urinary tract infection, site not specified; N17.9 Acute kidney failure, unspecified; I50.9 Heart failure, unspecified; I11.0 Hypertensive heart disease with heart failure; Z20.822 Contact with and (suspected) exposure to COVID-19; R73.9 Hyperglycemia, unspecified; N40.0 Benign prostatic hyperplasia without lower urinary tract symptoms; N28.1 Cyst of kidney, acquired; N21.0 Calculus in bladder; N20.0 Calculus of kidney; K57.30 Diverticulosis of large intestine without perforation or abscess without bleeding; K52.9 Noninfective gastroenteritis and colitis, unspecified; I95.9 Hypotension, unspecified; Z79.899 Other long term (current) drug therapy
CPT/HCPCS: 36415; 71045; 71250; 74176; 80048; 80053; 80202; 80307; 80320; 81001; 82962; 83036; 83605; 83690; 83880; 85025; 85048; 85610; 85730; 86850; 86900; 86901; 87040; 87045; 87426; 87427; 87804; 93306; 96361; 96365; 96372; 96375; G0378; J2470; J2543; P9047; Q0162